=== PATIENT | female | born 1960 | race Caucasian/White ===

== ENCOUNTER → 2016-10-29 | Outpatient (CLI) | payer BC ==
[2016-10-29 11:16] LABS: ALT 47 U/L (9-52); AST 28 U/L (14-36); Alkaline Phosphatase 130 U/L (38-126); Anion Gap 12 mmol/L; Blood Urea Nitrogen 16 mg/dL (7-17); Calcium 9.7 mg/dL (8.4-10.2); Carbon Dioxide 26 mmol/L (22-30); Chloride 102 mmol/L (98-107); Cholesterol 194 mg/dL (<200); Glucose 164 mg/dL (74-99); HDL Cholesterol 42 mg/dL (40-60); Non-African American GFR(MDRD) >60 (>60 ml/min/1.73 sqM); Potassium 4.4 mmol/L (3.5-5.1); Sodium 140 mmol/L (137-145); Total Bilirubin 1.2 mg/dL (0.2-1.3); Total Protein 7.4 g/dL (6.3-8.2); Triglycerides 426 mg/dL (<150)
== END ==
LOC: LABWHC1 09:31
PROVIDERS: ATTEND Internal Medicine Endocrinology, Diabetes & Metabolism
DX: E11.65 Type 2 diabetes mellitus with hyperglycemia (principal); E03.8 Other specified hypothyroidism
CPT/HCPCS: 36415; 80053; 80061; 84443

== ENCOUNTER 2017-11-03 07:22 | Day surgery (SDC) | payer BC ==
[2017-10-29 14:50] VITALS: BMI 49.4
[~2017-11-03 07:22] MED LIST: LACTATED RINGERS 1,000 ML IV SCH; LIDOCAINE 1% 20 ML VIAL (10MG/ML) FOR IV START INTRADERMA PRN
[2017-11-03 08:16] VITALS: RESP 16; TEMP 97.2
[2017-11-03 08:28] LABS: Glucose,Whole Blood 236 mg/dL (75-99)
[2017-11-03 08:36] LABS: Anion Gap 15 mmol/L; Blood Urea Nitrogen 11 mg/dL (7-17); Calcium 9.4 mg/dL (8.4-10.2); Carbon Dioxide 25 mmol/L (22-30); Chloride 98 mmol/L (98-107); Glucose 243 mg/dL (74-99); Sodium 138 mmol/L (137-145)
[2017-11-03] MEDS ORDERED: PROPOFOL 10 MG/ML 20 ML VIAL IV ONE (08:54)
[2017-11-03] MEDS ORDERED: LIDOCAINE 1% INJ 10MG/ML (20 ML MDV) ONE (08:54)
--- NOTE | 2017-11-03 09:14 | P.PCN ---
Date of Procedure: 11/03/17 Procedure(s) Performed: BRIEF HISTORY: Patient is a 57-year-old pleasant white female, scheduled for an elective colonoscopy as a part of screening for colorectal neoplasia. She has family history of colon cancer diagnosed in her sister at age 49. PROCEDURE PERFORMED: Colonoscopy with snare polypectomy. PREOPERATIVE DIAGNOSIS: Screening for colon cancer/family history of colon cancer. IV sedation per Anesthesia. PROCEDURE: After informed consent was obtained, the patient, was brought into the endoscopy unit. IV sedation was administered by Anesthesia under continuous monitoring. Digital rectal examination was normal. Initially the Olympus CF- 160 flexible video colonoscope was then inserted in the rectum, gradually advanced into the cecum without any difficulty. Careful examination was performed as the scope was gradually being withdrawn. Ileocecal valve and the appendiceal orifice were visualized and appeared normal. Prep was excellent. Mucosa of the cecum, ascending colon, transverse colon, appeared normal. In the descending colon there was a 5 mm and 7 mm polyp was of which were removed by snare polypectomy. Rest of the descending colon, sigmoid colon, and rectum appeared normal. In the rectum there was a 5 mm 2 polyps removed by snare polypectomy. Retroflexion was performed in the rectum and no lesions were seen. The patient tolerated the procedure well. IMPRESSION: 5 mm and 7 mm descending colon polyp status post polypectomy 5 mm 2 rectal polyps status post polypectomy RECOMMENDATIONS: Findings of this examination were discussed with the patient as well as a family. She was advised to follow with the biopsy results. If the biopsy of colon polyp shows a tumor adenoma, she can have a repeat colonoscopy in 3-5 years.
[2017-11-03 09:58] VITALS: BP 149/56; PULSE 46
== END 2017-11-03 09:46 | disposition home or self-care (01) ==
LOC: ORWHC2ENDO 07:22
PROVIDERS: ATTEND Internal Medicine Gastroenterology
DX: Z12.11 Encounter for screening for malignant neoplasm of colon (principal); D12.4 Benign neoplasm of descending colon; D12.8 Benign neoplasm of rectum; Z80.0 Family history of malignant neoplasm of digestive organs; I25.10 Atherosclerotic heart disease of native coronary artery without angina pectoris; I49.9 Cardiac arrhythmia, unspecified; E78.5 Hyperlipidemia, unspecified; E11.9 Type 2 diabetes mellitus without complications; E07.9 Disorder of thyroid, unspecified; F39 Unspecified mood [affective] disorder; Z95.5 Presence of coronary angioplasty implant and graft; Z79.84 Long term (current) use of oral hypoglycemic drugs; Z79.890 Hormone replacement therapy; Z79.82 Long term (current) use of aspirin; Z79.899 Other long term (current) drug therapy; Z88.1 Allergy status to other antibiotic agents; Z91.048 Other nonmedicinal substance allergy status
CPT/HCPCS: 93005; 88305; 80048; 45385; J2001; J2704

== ENCOUNTER → 2018-04-01 | Outpatient (CLI) | payer BC ==
[2018-04-01 10:11] LABS: ALT 65 U/L (9-52); AST 32 U/L (14-36); Albumin 3.9 g/dL (3.5-5.0); Alkaline Phosphatase 150 U/L (38-126); Anion Gap 9 mmol/L; Blood Urea Nitrogen 15 mg/dL (7-17); Calcium 9.2 mg/dL (8.4-10.2); Carbon Dioxide 27 mmol/L (22-30); Chloride 99 mmol/L (98-107); Cholesterol 239 mg/dL (<200); Glucose 308 mg/dL (74-99); HDL Cholesterol 37 mg/dL (40-60); Potassium 4.3 mmol/L (3.5-5.1); Sodium 135 mmol/L (137-145); Total Bilirubin 1.3 mg/dL (0.2-1.3); Total Protein 6.8 g/dL (6.3-8.2)
[2018-04-01 10:20] LABS: Triglycerides 605 mg/dL (<150)
[2018-04-01 19:42] LABS: Hemoglobin A1C 11.3 % (4.0-6.0)
== END | disposition home or self-care (01) ==
LOC: LABWHC1 09:07
PROVIDERS: ATTEND Internal Medicine Clinical Cardiac Electrophysiology
DX: E11.9 Type 2 diabetes mellitus without complications (principal); I25.10 Atherosclerotic heart disease of native coronary artery without angina pectoris; I49.3 Ventricular premature depolarization
CPT/HCPCS: 36415; 80053; 80061; 83036; 84443

== ENCOUNTER → 2020-01-29 | Outpatient (CLI) | payer BC ==
[2020-01-29 11:30] LABS: Basophils % (A) 1 %; Eosinophils # (A) 0.6 k/uL (0-0.7); Eosinophils % (A) 7 %; HCT 39.7 % (34.0-46.0); Lymphocytes # (A) 1.7 k/uL (1.0-4.8); Lymphocytes % (A) 21 %; MCH 31.7 pg (25.0-35.0); MCHC 35.3 g/dL (31.0-37.0); Mean Platelet Volume 7.7; Monocytes # (A) 0.3 k/uL (0-1.0); Monocytes % (A) 4 %; Neutrophils # (A) 5.4 k/uL (1.3-7.7); Neutrophils % (A) 66 %; Platelet Count 214 k/uL (150-450); RBC 4.41 m/uL (3.80-5.40); WBC 8.2 k/uL (3.8-10.6)
[2020-01-29 18:12] LABS: African American GFR (CKD) 109.9 (60.0-200.0); Albumin 3.9 g/dL (3.80-4.90); Albumin/Globulin Ratio 1.86 (1.60-3.17); Anion Gap 7.6 mmol/L (4.00-12.00); BUN/Creat Ratio 18.57 Ratio (12.00-20.00); Calcium 9.1 mg/dL (8.7-10.3); Carbon Dioxide 27.4 mmol/L (21.6-31.8); Chol/HDL Ratio 4.46; Globulin 2.1 g/dL (1.6-3.3); LDL Cholesterol,Calculated 76.6 mg/dL (0.0-131.0); Non-African American GFR(CKD) 94.8 (60.0-200.0); Potassium 4.3 mmol/L (3.5-5.5); VLDL Calculation 51.4 mg/dL (5.00-40.00)
[2020-01-29 18:20] LABS: T4, Free (Free Thyroxine) 1.1 ng/dL (0.80-1.80)
[2020-01-29 18:25] LABS: Hemoglobin A1C 11.3 % (4.0-6.0)
[2020-01-29 22:56] LABS: Urine Creatinine 125.2 mg/dL
== END | disposition home or self-care (01) ==
LOC: LABWHC1 10:17
PROVIDERS: ATTEND Internal Medicine
DX: I10 Essential (primary) hypertension (principal); E78.2 Mixed hyperlipidemia; E11.9 Type 2 diabetes mellitus without complications; E03.9 Hypothyroidism, unspecified
CPT/HCPCS: 36415; 80053; 80061; 82043; 82570; 83036; 84439; 84443; 85025

== ENCOUNTER 2020-10-30 16:09 | Inpatient (IN) | payer BC ==
[2020-10-30] MEDS ORDERED: ASPIRIN 81 MG PO STA (16:38)
[2020-10-30] MEDS ORDERED: NITROGLYCERIN SL TABS 0.4 MG TAB SUBLINGUAL STA (16:39)
--- NOTE | 2020-10-30 16:48 | ED ---
Chest Pain HPI - General Chief Complaint: Chest Pain Stated Complaint: Chest pain Time Seen by Provider: 10/30/20 16:19 Source: patient Mode of arrival: wheelchair Limitations: no limitations - History of Present Illness Initial Comments: 6-year-old female history of cardiac disease with 2 stents and ablation who presents with complaints of approximately 2 days of intermittent episodes of retrosternal chest pain it would he had a cough but today seems to not want to go away she states it was approximately 6/10 in severity when she arrived here now is about 7/10 his bandlike feels like someone sitting on her chest. She has some shortness of breath with it. She has some outdated nitroglycerin at home he did not take any also did not take aspirin today. No other current complaints or modifying factors no fevers chills sweats cough or other symptoms. MD Complaint: chest pain - Related Data Home Medications Medication Instructions Recorded Confirmed Aspirin 81 mg PO HS 07/20/14 10/30/20 Furosemide [Lasix] 20 mg PO MOWEFR 07/20/14 10/30/20 Sertraline HCl 100 mg PO DAILY 07/20/14 10/30/20 metFORMIN HCL [Glucophage] 500 mg PO DAILY 07/20/14 10/30/20 Atorvastatin [Lipitor] 40 mg PO HS 10/30/20 10/30/20 Benefiber Gummies 2 tab PO BID PRN 10/30/20 10/30/20 Empagliflozin [Jardiance] 25 mg PO DAILY 10/30/20 10/30/20 Levothyroxine Sodium [Synthroid] 50 mcg PO DAILY 10/30/20 10/30/20 Metoprolol Succinate [Toprol XL] 25 mg PO DAILY 10/30/20 10/30/20 Psyllium Husk (with Sugar) 1 tsp PO DAILY PRN 10/30/20 10/30/20 [Metamucil Powder] metFORMIN HCL [Glucophage] 2,000 mg PO HS 10/30/20 10/30/20 sitaGLIPtin PHOSPHATE [Januvia] 100 mg PO DAILY 10/30/20 10/30/20 Allergies Allergy/AdvReac Type Severity Reaction Status Date / Time adhesive Allergy Rash/Hives Verified 10/30/20 17:49 eggplant Allergy Rash/Hives Verified 10/30/20 17:49 moxifloxacin HCl Allergy MEMORY LOSS Verified 10/30/20 17:49 [From Avelox] Review of Systems ROS Statement: Those systems with pertinent positive or pertinent negative responses have been documented in the HPI. ROS Other: All systems not noted in ROS Statement are negative. EKG Findings - EKG Results: EKG: interpreted by SHANE, sinus rhythm (Sinus bradycardia rate 55. Interval was 78 QRS duration 80 QT since QTC 426/[address]-T wave changes) Past Medical History Past Medical History: Diabetes Mellitus, Hyperlipidemia, Thyroid Disorder Additional Past Medical History / Comment(s): regular irregular HR History of Any Multi-Drug Resistant Organisms: None Reported Past Surgical History: Cardiac Ablation, Heart Catheterization With Stent, Orthopedic Surgery, Tonsillectomy Additional Past Surgical History / Comment(s): heart stents x2,d&c,lenny carpel tunnel Past Anesthesia/Blood Transfusion Reactions: No Reported Reaction Date of Last Stent Placement:: 2013? Past Psychological History: Depression Smoking Status: Never smoker Past Alcohol Use History: None Reported Past Drug Use History: None Reported - Past Family History Sister(s) Family Medical History: Cancer Additional Family Medical History / Comment(s): colon,breast Father Additional Family Medical History / Comment(s): heart problems Mother Family Medical History: Deep Vein Thrombosis (DVT) General Exam - General Exam Comments Initial Comments: This is a well-developed well-nourished awake alert oriented 3 female Limitations: no limitations General appearance: alert Head exam: Present: atraumatic, normocephalic, normal inspection Eye exam: Present: normal appearance, PERRL, EOMI. Absent: scleral icterus, conjunctival injection, periorbital swelling ENT exam: Present: normal exam, mucous membranes moist Neck exam: Present: normal inspection. Absent: tenderness, meningismus, lymphadenopathy Respiratory exam: Present: normal lung sounds bilaterally. Absent: respiratory distress, wheezes, rales, rhonchi, stridor Cardiovascular Exam: Present: regular rate, normal rhythm, normal heart sounds. Absent: systolic murmur, diastolic murmur, rubs, gallop, clicks GI/Abdominal exam: Present: soft, normal bowel sounds. Absent: distended, tenderness, guarding, rebound, rigid Extremities exam: Present: normal inspection, full ROM, normal capillary refill. Absent: tenderness, pedal edema, joint swelling, calf tenderness Back exam: Present: normal inspection Neurological exam: Present: alert, oriented X3, CN II-XII intact Psychiatric exam: Present: normal affect, normal mood Skin exam: Present: warm, dry, intact, normal color. Absent: rash Course Vital Signs 10/30/20 10/30/20 10/30/20 16:12 17:30 18:00 Temperature 98.3 F Pulse Rate 60 54 L 62 Respiratory 20 15 18 Rate Blood Pressure 167/65 155/68 154/66 O2 Sat by Pulse 100 98 99 Oximetry 10/30/20 18:30 Temperature Pulse Rate 54 L Respiratory 16 Rate Blood Pressure 159/72 O2 Sat by Pulse 99 Oximetry Chest Pain MDM - MDM Imaging reviewed no acute findings. I did discuss findings the patient family patient is feeling improved I did discuss case with Dr. Ruiz. Patient be admitted with cardiology consultation. The presentation is consistent with unstable angina Disposition Clinical Impression: Chest pain, Unstable angina pectoris Disposition: ADMITTED IP TO THIS [facility] Condition: Fair Referrals: Puma Ruiz MD [Primary Care Provider] - 1-2 days
[2020-10-30 16:51] LABS: Basophils # (A) 0.1 k/uL (0-0.2); Basophils % (A) 1 %; Eosinophils # (A) 0.5 k/uL (0-0.7); Eosinophils % (A) 5 %; HCT 41.7 % (34.0-46.0); HGB 14.8 gm/dL (11.4-16.0); Hyperchromasia Slight; Lymphocytes # (A) 1.6 k/uL (1.0-4.8); Lymphocytes % (A) 16 %; MCH 30.7 pg (25.0-35.0); MCHC 35.6 g/dL (31.0-37.0); MCV 86.1 fL (80.0-100.0); Mean Platelet Volume 7.3; Monocytes # (A) 0.5 k/uL (0-1.0); Monocytes % (A) 5 %; Neutrophils # (A) 7.3 k/uL (1.3-7.7); Neutrophils % (A) 73 %; Platelet Count 223 k/uL (150-450); RBC 4.84 m/uL (3.80-5.40); RDW 12.7 % (11.5-15.5)
[2020-10-30 17:00] LABS: ALT 17 U/L (4-34); AST 23 U/L (14-36); African American GFR (CKD) >90 (>60 ml/min/1.73 sqM); Albumin 4.7 g/dL (3.5-5.0); Alkaline Phosphatase 90 U/L (38-126); Anion Gap 9 mmol/L; Blood Urea Nitrogen 20 mg/dL (7-17); Calcium 10.4 mg/dL (8.4-10.2); Carbon Dioxide 27 mmol/L (22-30); Chloride 102 mmol/L (98-107); Creatine Kinase 50 U/L (30-135); Glucose 100 mg/dL (74-99); Magnesium 2.2 mg/dL (1.6-2.3); Non-African American GFR(CKD) >90 (>60 ml/min/1.73 sqM); Potassium 4.1 mmol/L (3.5-5.1); Sodium 138 mmol/L (137-145); Total Bilirubin 0.9 mg/dL (0.2-1.3); Total Protein 7.6 g/dL (6.3-8.2)
[2020-10-30 17:07] LABS: INR 0.9 (<1.2); Partial Thromboplastin Time 23.1 sec (22.0-30.0)
--- NOTE | 2020-10-30 17:15 | XR ---
EXAMINATION TYPE: XR chest 2V DATE OF EXAM: 10/30/2020 COMPARISON: 09/16/2018 HISTORY: Chest pain TECHNIQUE: 2 views FINDINGS: Heart and mediastinum are normal. Lungs are clear. Diaphragm is normal. Bony thorax is inta ct. There are chest leads. IMPRESSION: Normal chest. No change.
--- NOTE | 2020-10-30 18:27 | CT ---
EXAMINATION TYPE: CT angio chest DATE OF EXAM: 10/30/2020 COMPARISON: HISTORY: Chest pain. SOB. elevated d-dimer CT DLP: 525.5 mGycm Automated exposure control for dose reduction was used. CONTRAST: Performed with IV Contrast, patient injected with 80 mL of Isovue 370. Images were obtained from the thoracic inlet to the diaphragm with IV contrast and 3-D post processed images. The lungs are clear of consolidation. There is no pleural effusion. Heart is enlarged. There is no pe ricardial effusion. There are no hilar masses. There is no mediastinal adenopathy. Thoracic aorta is intact. There is no aneurysm or dissection. There is no evidence of filling defect in the pulmonary arteries. There is normal opacification of th e pulmonary arteries. The bony thorax is intact. Sternum is intact. IMPRESSION: No active cardiopulmonary disease. No evidence of pulmonary embolism.
[2020-10-30] MEDS ORDERED: HEPARIN SODIUM,PORCINE 5,000 UNIT/ML 1 ML VIAL IV ONE (18:55)
[2020-10-30] MEDS ORDERED: NITROGLYCERIN SL TABS 0.4 MG TAB SUBLINGUAL PRN (18:55)
[2020-10-30] MEDS ORDERED: PSYLLIUM HUSK 100% 6 GM PACKET PO PRN (18:57)
[2020-10-30] MEDS ORDERED: FIBER SUPPLEMENT PO PRN (18:57)
[2020-10-30] MEDS ORDERED: HEPARIN SOD,PORK IN 0.45% NACL 25,000 UNIT in 0.45% NACL 1 250ML.BAG IV SCH (19:00)
[2020-10-30] MEDS: FUROSEMIDE 20 MG TAB PO SCH (20:13)
[2020-10-30] MEDS: SODIUM CHLORIDE 0.9% 1,000 ML IV SCH (20:13)
[2020-10-30] MEDS: metFORMIN 500 MG TAB PO SCH (22:07)
[2020-10-30] MEDS: ATORVASTATIN 40 MG TAB PO SCH (22:07)
[2020-10-31] MEDS ORDERED: HEPARIN SODIUM,PORCINE 5,000 UNIT/ML 1 ML VIAL IV PRN ×2 (04:53→04:55)
[2020-10-31] MEDS: NITROGLYCERIN OINT 1 INCH/GM PACKET TOPICAL SCH ×4 (05:06→18:24)
[2020-10-31] MEDS: LINAGLIPTIN 5 MG TABLET PO SCH (07:50)
[2020-10-31] MEDS: SERTRALINE 100 MG TAB PO SCH (07:50)
[2020-10-31] MEDS: METOPROLOL SUCCINATE (ER) 25 MG TAB.ER.24H PO SCH (07:50)
[2020-10-31] MEDS: ASPIRIN 325 MG TAB PO SCH (07:50)
[2020-10-31] MEDS: LEVOTHYROXINE 50 MCG TAB PO SCH (07:50)
[2020-10-31] MEDS: metFORMIN 500 MG TAB PO SCH ×2 (07:50→20:27)
[2020-10-31] MEDS: NON FORMULARY DRUG (Empagliflozin [Jardiance] 25 MG Tablet) PO SCH (07:51)
[2020-10-31] MEDS ORDERED: HEPARIN SODIUM 1,000 UN/ML (10ML VL) IV PRN (08:30)
[2020-10-31 09:18] LABS: Glucose,Whole Blood 101 mg/dL (75-99)
[2020-10-31] MEDS ORDERED: CAFFEINE CITRATE 60 MG/3 ML VIAL IV PRN (09:36)
[2020-10-31] MEDS ORDERED: AMINOPHYLLINE 500 MG/20 ML VIAL IV PRN (09:36)
[2020-10-31] MEDS ORDERED: REGADENOSON 0.4 MG/5 ML SYRINGE IV PRN (09:36)
--- NOTE | 2020-10-31 11:15 | P.CRDCN ---
History of Present Illness History of present illness: HISTORY OF PRESENTING ILLNESS This is a pleasant 60 -year-old female past medical history significant for type 2 diabetes, hypertension, coronary artery disease status post PCI to the mid RCA , dyslipidemia. She follows in the office with Dr. Tam, last seen in the office in 2018. We have been asked to see in consultation for chest pain. Patient states she started to have retrosternal chest pain started Wednesday and progressively got worse. Pain started on right side back radiating to her anterior chest. She states it was bandl-like in nature, describes it as a 7/10 pressure as if someone is sitting on her chest. Some shortness of breath. States her coworkers said she looked clammy yesterday and her chest pressure persisted, and she decided to present to the emergency department. She states she did take some outdated nitroglycerin at home and it did help relieve the pain. She denies palpitations, shortness of breath, lower extremity edema, weakness, lightheadedness, syncope. She currently does not have chest pain. She does have shortness of breath when lying flat but states this has been going on for years since she gave to her daughter. She denies tobacco, alcohol or illicit drug use. Both EKGs reveal sinus bradycardia HR 55 T wave flattening in leads III and aVF, similar to prior EKGs. Laboratory data reviewed, troponins negative 3, BNP 41, d-dimer 0.85, sodium 138, potassium 4.1, serum creatinine 0.69, WBC 10, hemoglobin 14.8, platelets 223, covid-19 negative. Chest x-ray was no acute cardiopulmonary process. CT chest negative for pulmonary embolism, no active Cardiopulmonary disease. Vital signs blood pressure 116/62, heart rate 49, afebrile, maintaining oxygen saturation on room air. Current home cardiac medications include Lasix 20 mg Wednesday, atorvastatin 40 mg nightly, aspirin 81 mg nightly. She states that she is not sure that she takes Toprol 25mg daily or Losartan. Most recent echocardiogram 04/2018: Left ventricle is mildly dilated with normal systolic function ejection fraction is 55%. Mild concentric hypertrophy 2. LA is moderately dilated. Mild MR Lexiscan stress test 04/2018: fixed perfusion defect in fredo anterolateral segment suggestive of soft-tissue artifact. EKG portion of the stress test dose not show any evidence of ischemia Holter Report 04/2018: Sinus mechanism with heart rate ranging from 46-107 bpm with average of 64 bpm. Normal IA interval. Frequent PVCs, frequent ventricular couplets. One ventricular triplet. Most PVCs are similar morphology. REVIEW OF SYSTEMS At the time of my exam: CONSTITUTIONAL: Denies fever or chills. CARDIOVASCULAR: +chest pain,+ shortness of breath, Denies orthopnea, PND or palpitations. RESPIRATORY: Denies cough. GASTROINTESTINAL: Denies abdominal pain, diarrhea, constipation, nausea or vomiting. MUSCULOSKELETAL: Denies myalgias. NEUROLOGIC: Denies numbness, tingling, headacbe or weakness. ENDOCRINE: Denies fatigue, weight change, polydipsia or polyurina. GENITOURINARY: Denies burning, hematuria or urgency with micturation. HEMATOLOGIC: Denies history of anemia or bleeding. PHYSICAL EXAMINATION CONSTITUTIONAL: No apparent distress. HEENT: Head is normocephalic. Pupils are equal, round. Sclerae anicteric. Mucous membranes of the mouth are moist. No JVD. No carotid bruit. CHEST EXAMINATION: Lungs are clear to auscultation. No chest wall tenderness is noted on palpation or with deep breathing. HEART EXAMINATION: Regular rate and rhythm. S1, S2 heard. Systolic ejection murmur noted at right sternal border, No gallops or rub. ABDOMEN: Soft, nontender. Positive bowel sounds. EXTREMITIES: 2+ peripheral pulses, no lower extremity edema and no calf tenderness. SKIN: intact NEUROLOGIC EXAMINATION: Patient is awake, alert and oriented x3. ASSESSMENT Chest pain, atypical acute coronary event has been ruled out. Coronary artery disease s/p PCI mid RCA (bare metal stenting) in 01/2012. and Cardiac cath 07/2012 revealed severe in stent restenosis of RCA, FARIHA to mid RCA by Dr. Otero Type 2 Diabetes Hypertension Dyslipidemia PLAN An acute coronary event has been ruled out with no EKG evidence of ischemia and negative cardiac enzymes. Obtain 2D echocardiogram and doppler study to assess cardiac structure and function. Perform Lexiscan stress test to assess for stress induced cardiac ischemia. If abnormal will consider coronary angiography. If echocardiogram and stress test with no acute findings, patient can be discharged from cardiology perspective Follow up with Dr. Tam in the outpatient office at scheduled appointment- patient states she has an appointment on 11/07/20 Thank you kindly for this consultation. Nurse Practitioner note has been reviewed, I agree with a documented findings and plan of care. Patient was seen and examined. Past Medical History Past Medical History: Diabetes Mellitus, Hyperlipidemia, Thyroid Disorder Additional Past Medical History / Comment(s): regular irregular HR History of Any Multi-Drug Resistant Organisms: None Reported Past Surgical History: Cardiac Ablation, Heart Catheterization With Stent, Orthopedic Surgery, Tonsillectomy Additional Past Surgical History / Comment(s): heart stents x2,d&c,lenny carpel tunnel Past Anesthesia/Blood Transfusion Reactions: No Reported Reaction Date of Last Stent Placement:: 2013? Past Psychological History: Depression Smoking Status: Never smoker Past Alcohol Use History: None Reported Past Drug Use History: None Reported - Past Family History Sister(s) Family Medical History: Cancer Additional Family Medical History / Comment(s): colon,breast Father Additional Family Medical History / Comment(s): heart problems Mother Family Medical History: Deep Vein Thrombosis (DVT) Medications and Allergies Home Medications Medication Instructions Recorded Confirmed Type Aspirin 81 mg PO HS 07/20/14 10/30/20 History Furosemide [Lasix] 20 mg PO MOWEFR 07/20/14 10/30/20 History Sertraline HCl 100 mg PO DAILY 07/20/14 10/30/20 History metFORMIN HCL [Glucophage] 500 mg PO DAILY 07/20/14 10/30/20 History Atorvastatin [Lipitor] 40 mg PO HS 10/30/20 10/30/20 History Benefiber Gummies 2 tab PO BID PRN 10/30/20 10/30/20 History Empagliflozin [Jardiance] 25 mg PO DAILY 10/30/20 10/30/20 History Levothyroxine Sodium [Synthroid] 50 mcg PO DAILY 10/30/20 10/30/20 History Metoprolol Succinate [Toprol XL] 25 mg PO DAILY 10/30/20 10/30/20 History Psyllium Husk (with Sugar) 1 tsp PO DAILY PRN 10/30/20 10/30/20 History [Metamucil Powder] metFORMIN HCL [Glucophage] 2,000 mg PO HS 10/30/20 10/30/20 History sitaGLIPtin PHOSPHATE [Januvia] 100 mg PO DAILY 10/30/20 10/30/20 History Allergies Allergy/AdvReac Type Severity Reaction Status Date / Time adhesive Allergy Rash/Hives Verified 10/30/20 17:49 eggplant Allergy Rash/Hives Verified 10/30/20 17:49 moxifloxacin HCl Allergy MEMORY LOSS Verified 10/30/20 17:49 [From Avelox] Physical Exam Vitals: Vital Signs Temp Pulse Resp BP Pulse Ox 10/31/20 06:00 97.7 F 51 L 17 130/84 97 10/31/20 02:00 50 L 21 145/87 10/31/20 00:00 20 10/30/20 22:00 55 L 18 10/30/20 20:00 20 136/62 98 10/30/20 18:47 53 L 19 159/72 90 L 10/30/20 18:30 54 L 16 159/72 99 10/30/20 18:00 62 18 154/66 99 10/30/20 17:30 54 L 15 155/68 98 10/30/20 16:12 98.3 F 60 20 167/65 100 Intake and Output 10/30/20 10/31/20 10/31/20 22:59 06:59 14:59 Intake Total 87.877 Balance 87.877 Intake: Intake, IV Titration 87.877 Amount Heparin Sod,Pork in 0.45% 87.877 NaCl 25,000 unit In 0.45 % NaCl 1 250ml.bag @ 8.05 UNITS/KG/HR 10.005 mls/ hr IV .Q24H [facility] Rx#: [id number] Other: Weight 124.284 kg Results 10/30/20 16:43 10/30/20 16:43 Cardiac Enzymes 10/30/20 10/30/20 10/30/20 Range/Units 16:43 16:43 20:06 AST 23 (14-36) U/L Troponin I <0.012 <0.012 (0.000-0.034) ng/mL 10/30/20 Range/Units 23:15 AST (14-36) U/L Troponin I <0.012 (0.000-0.034) ng/mL Coagulation 10/30/20 10/31/20 Range/Units 16:43 03:25 PT 10.0 (9.0-12.0) sec APTT 23.1 34.7 H (22.0-30.0) sec CBC 10/30/20 Range/Units 16:43 WBC 10.0 (3.8-10.6) k/uL RBC 4.84 (3.80-5.40) m/uL Hgb 14.8 (11.4-16.0) gm/dL Hct 41.7 (34.0-46.0) % Plt Count 223 (150-450) k/uL Comprehensive Metabolic Panel 10/30/20 Range/Units 16:43 Sodium 138 (137-145) mmol/L Potassium 4.1 (3.5-5.1) mmol/L Chloride 102 (98-107) mmol/L Carbon Dioxide 27 (22-30) mmol/L BUN 20 H (7-17) mg/dL Creatinine 0.69 (0.52-1.04) mg/dL Glucose 100 H (74-99) mg/dL Calcium 10.4 H (8.4-10.2) mg/dL AST 23 (14-36) U/L ALT 17 (4-34) U/L Alkaline Phosphatase 90 (38-126) U/L Total Protein 7.6 (6.3-8.2) g/dL Albumin 4.7 (3.5-5.0) g/dL Current Medications Generic Name Dose Route Start Last Admin Trade Name Freq PRN Reason Stop Dose Admin Aspirin 325 mg 10/31/20 09:00 Aspirin 325 Mg Tab PO DAILY [facility] Atorvastatin Calcium 40 mg 10/30/20 21:00 10/30/20 22:07 Atorvastatin 40 Mg Tab PO 40 mg HS JENNIFER Administration Furosemide 20 mg 10/30/20 19:00 10/30/20 20:13 Furosemide 20 Mg Tab PO 20 mg MOWEFR JENNIFER Administration Heparin Sodium (Porcine) 0 unit 10/31/20 04:55 10/31/20 05:05 Heparin Sodium,Porcine 5,000 Unit/Ml 1 Ml Vial IV 4,000 unit PER PROTOCOL PRN Administration Low PTT Protocol Sodium Chloride 1,000 mls @ 20 mls/hr 10/30/20 19:00 10/30/20 20:13 Saline 0.9% IV 20 mls/hr .Q24H JENNIFER Administration Heparin Sodium/Sodium Chloride 250 mls @ 10.005 mls/hr 10/30/20 19:00 10/31/20 04:57 25,000 unit/ Sodium Chloride IV 11.05 units/kg/hr .Q24H JENNIFER 13.733 mls/hr Titration Protocol 8.05 UNITS/KG/HR Levothyroxine Sodium 50 mcg 10/31/20 06:30 Levothyroxine 50 Mcg Tab PO DAILY@0630 [facility] Linagliptin 5 mg 10/31/20 09:00 Linagliptin 5 Mg Tablet PO DAILY [facility] Metformin HCl 2,000 mg 10/30/20 21:00 10/30/20 22:07 Metformin 500 Mg Tab PO 2,000 mg HS [facility] Administration Metformin HCl 500 mg 10/31/20 09:00 Metformin 500 Mg Tab PO DAILY [facility] Metoprolol Succinate 25 mg 10/31/20 09:00 Metoprolol Succinate (Er) 25 Mg Tab.Er.24h PO DAILY [facility] Nitroglycerin 0.4 mg 10/30/20 18:55 Nitroglycerin Sl Tabs 0.4 Mg Tab SUBLINGUAL Q5M PRN Chest Pain Nitroglycerin 1 inch 10/31/20 00:00 10/31/20 05:06 Nitroglycerin Oint 1 Inch/Gm Packet TOPICAL Not Given Q6HR [facility] Non-Formulary Medication 25 mg 10/31/20 09:00 Empagliflozin [Jardiance] PO DAILY [facility] Psyllium Hydrophilic Mucilloid 6 gm 10/30/20 18:57 Psyllium Husk 100% 6 Gm Packet PO DAILY PRN Constipation Sertraline HCl 100 mg 10/31/20 09:00 Sertraline 100 Mg Tab PO DAILY [facility] Intake and Output 10/30/20 10/31/20 10/31/20 22:59 06:59 14:59 Intake Total 87.877 Balance 87.877 Intake: Intake, IV Titration 87.877 Amount Heparin Sod,Pork in 0.45% 87.877 NaCl 25,000 unit In 0.45 % NaCl 1 250ml.bag @ 8.05 UNITS/KG/HR 10.005 mls/ hr IV .Q24H [facility] Rx#: [id number] Other: Weight 124.284 kg 10/30/20 16:43 10/30/20 16:43
--- NOTE | 2020-10-31 11:43 | P.HPIM ---
History of Present Illness H&P Date: 10/31/20 HISTORY OF PRESENT ILLNESS This is a 60-year-old female patient with past medical history of diabetes mellitus type 2, hypertension, hyperlipidemia, hypothyroidism, coronary artery disease with PCI to the mid RCA. Patient has been seen by cardiology in the past but has not had a stress test for the past 2 years. She doesn't have appointment with Dr. Tam on November 07. Patient states that she started having chest pain yesterday while she was at work. She felt like a band was across the lower part of her chest and was sharp in the back area. 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 She denies any radiation up into the neck and upper chest or arms. She does state that she has had some numbness in her left fingers for a month and has been following with chiropractor for this. She denies having any weakness. No pedal edema. No fever or chills, no cough. No nausea, vomiting or diarrhea. No lightheadedness or dizziness. She states her blood sugars have been running in a good range. Patient presented to [facility] emergency center for evaluation. She was afebrile, heart rate in the 50s and 60s, blood pressure 167/65, pulse ox 100% on room air. CBC was normal. Electrolytes normal. BUN 20 creatinine 0.69. Blood sugar 100. Calcium 100.4. Liver function tests normal. Magnesium 2.2. Troponin negative on 3 draws. Coronavirus PCR not detected. D-dimer 0.85. EKG is a sinus bradycardia. No acute ST changes. Chest x-ray was normal. CTA of the chest showed no active cardiopulmonary disease. No pulmonary embolism. The patient has been seen by cardiology and ordered for Lexiscan stress test which revealed stress-induced ischemic changes in the lateral wall. Some mild posterior lateral fixed defect may be present. Patient was then scheduled for heart catheterization tomorrow. Echocardiogram report is pending. REVIEW OF SYSTEMS At the time of evaluation: Constitutional: No fever, no chills, no night sweats. No weight change. No weakness, fatigue or lethargy. No daytime sleepiness. EENT: No headache. No blurred vision or double vision, no loss of vision. No loss of Hearing, no ringing in the ears, no dizziness. No nasal drainage or congestion. No epistaxis. No sore throat. Lungs: No shortness of breath, cough, no sputum production. No wheezing. Cardiovascular: Reports chest pain, no lower extremity edema. No palpitations. No paroxysmal nocturnal dyspnea. No orthopnea. No lightheadedness or dizziness. No syncopal episodes. Abdominal: No abdominal pain. No nausea, vomiting. No diarrhea. No constipation. No bloody or tarry stools.. No loss of appetite. Genitourinary: No dysuria, increased frequency, urgency. No urinary retention. Musculoskeletal: No myalgias. No muscle weakness, no gait dysfunction, no frequent falls. Reports back pain. No neck pain. Integumentary: No wounds, no lesions. No rash or pruritus. No unusual bruising. No change in hair or nails. Neurologic: No aphasia. No facial droop. No change in mentation. No head injury. No headache. No paralysis. No paresthesia. Psychiatric: No depression. No anxiety. No mood swings. Endocrine: No abnormal blood sugars. No weight change. No excessive sweating or thirst. No cold intolerance. SURGICAL HISTORY Heart catheterization with stent to the mid RCA, colonoscopy with snare polypectomy negative for malignancy, tonsillectomy, bilateral carpal tunnel release, cardiac ablation. SOCIAL HISTORY Patient is a lifelong nonsmoker, no alcohol use or abuse. 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 Patient lives at home with her . FAMILY HISTORY Father at age 79 from CVA. He had a history of coronary artery disease with CABG in his late 50s. He has history of pacemaker insertion. No diabetes. Mother at age 85 from pulmonary fibrosis. No diabetes history. Patient does not have any brothers. Patient has 3 sisters and one is at age 49 from colon cancer. One has [place]'s and one has diabetes. Patient has one daughter with no major medical problems. PHYSICAL EXAMINATION Gen: This A 60-year-old female patient. She is resting in bed and appears to be comfortable and in no acute distress. HEENT: Head is atraumatic, normocephalic. Pupils equal, round. Sclerae is anicteric. NECK: Supple. No JVD. No lymphadenopathy. No thyromegaly. LUNGS: Clear to auscultation. No wheezes or rhonchi. No intercostal retractions. HEART: Regular rate and rhythm. No murmur. ABDOMEN: Soft. Bowel sounds are present. No masses. No tenderness. EXTREMITIES: No pedal edema. No calf tenderness. dorsalis pedis +2 bilaterally. NEUROLOGICAL: Patient is awake, alert and oriented x3. Cranial nerves 2 through 12 are grossly intact. ASSESSMENT AND PLAN 1. Chest pain with negative troponins, acute coronary syndrome ruled out. Cardiology consult appreciated. Lexiscan stress test and echocardiogram. 2. Diabetes mellitus type 2. Continue NovoLog scale before meals and at bedtime, metformin at home dose and continue Tradjenta 5 mg daily. 3. History of coronary artery disease with PCI to the mid RCA and follows with Dr Tam. 4. Hypertension. Continue Lasix 20 mg on Wednesday. 5. Hyperlipidemia. Continue atorvastatin 40 mg daily. Continue levothyroxine 50 g daily 6. Hypothyroidism. Patient is observation status. DISCHARGE PLAN Home. Impression and plan of care have been directed as dictated by the signing physician. Polly Lewis nurse practitioner acting as scribe for signing physician. Past Medical History Past Medical History: Diabetes Mellitus, Hyperlipidemia, Thyroid Disorder Additional Past Medical History / Comment(s): regular irregular HR History of Any Multi-Drug Resistant Organisms: None Reported Past Surgical History: Cardiac Ablation, Heart Catheterization With Stent, Orthopedic Surgery, Tonsillectomy Additional Past Surgical History / Comment(s): heart stents x2,d&c,lenny carpel tunnel Past Anesthesia/Blood Transfusion Reactions: No Reported Reaction Date of Last Stent Placement:: 2013? Past Psychological History: Depression Smoking Status: Never smoker Past Alcohol Use History: None Reported Past Drug Use History: None Reported - Past Family History Sister(s) Family Medical History: Cancer Additional Family Medical History / Comment(s): colon,breast Father Additional Family Medical History / Comment(s): heart problems Mother Family Medical History: Deep Vein Thrombosis (DVT) Medications and Allergies Home Medications Medication Instructions Recorded Confirmed Type Aspirin 81 mg PO HS 07/20/14 10/30/20 History Furosemide [Lasix] 20 mg PO MOWEFR 07/20/14 10/30/20 History Sertraline HCl 100 mg PO DAILY 07/20/14 10/30/20 History metFORMIN HCL [Glucophage] 500 mg PO DAILY 07/20/14 10/30/20 History Atorvastatin [Lipitor] 40 mg PO HS 10/30/20 10/30/20 History Benefiber Gummies 2 tab PO BID PRN 10/30/20 10/30/20 History Empagliflozin [Jardiance] 25 mg PO DAILY 10/30/20 10/30/20 History Levothyroxine Sodium [Synthroid] 50 mcg PO DAILY 10/30/20 10/30/20 History Metoprolol Succinate [Toprol XL] 25 mg PO DAILY 10/30/20 10/30/20 History Psyllium Husk (with Sugar) 1 tsp PO DAILY PRN 10/30/20 10/30/20 History [Metamucil Powder] metFORMIN HCL [Glucophage] 2,000 mg PO HS 10/30/20 10/30/20 History sitaGLIPtin PHOSPHATE [Januvia] 100 mg PO DAILY 10/30/20 10/30/20 History Allergies Allergy/AdvReac Type Severity Reaction Status Date / Time adhesive Allergy Rash/Hives Verified 10/30/20 17:49 eggplant Allergy Rash/Hives Verified 10/30/20 17:49 moxifloxacin HCl Allergy MEMORY LOSS Verified 10/30/20 17:49 [From Avelox] Physical Exam Vitals: Vital Signs Temp Pulse Resp BP Pulse Ox 10/31/20 06:00 97.7 F 51 L 17 130/84 97 10/31/20 02:00 50 L 21 145/87 10/31/20 00:00 20 10/30/20 22:00 55 L 18 10/30/20 20:00 20 136/62 98 10/30/20 18:47 53 L 19 159/72 90 L 10/30/20 18:30 54 L 16 159/72 99 10/30/20 18:00 62 18 154/66 99 10/30/20 17:30 54 L 15 155/68 98 10/30/20 16:12 98.3 F 60 20 167/65 100 Intake and Output 10/30/20 10/31/20 10/31/20 22:59 06:59 14:59 Intake Total 87.877 Balance 87.877 Intake: Intake, IV Titration 87.877 Amount Heparin Sod,Pork in 0.45% 87.877 NaCl 25,000 unit In 0.45 % NaCl 1 250ml.bag @ 8.05 UNITS/KG/HR 10.005 mls/ hr IV .Q24H JENNIFER Rx#: [id number] Other: Weight 124.284 kg Results CBC & Chem 7: 10/30/20 16:43 10/30/20 16:43 Labs: Abnormal Lab Results - Last 24 Hours (Table) 10/30/20 10/30/20 10/31/20 Range/Units 16:43 16:43 03:25 APTT 34.7 H (22.0-30.0) sec D-Dimer 0.85 H (<0.60) mg/L FEU BUN 20 H (7-17) mg/dL Glucose 100 H (74-99) mg/dL Calcium 10.4 H (8.4-10.2) mg/dL
--- NOTE | 2020-10-31 12:44 | NM ---
EXAMINATION TYPE: NM stress lexiscan cardiolite DATE OF EXAM: 10/31/2020 COMPARISON: NONE HISTORY: Chest pain TECHNIQUE: After the intravenous administration of 10.3 mCi Tc 99m Sestamibi - Cardiolite resting SP ECT images acquired 60 minutes post injection. At peak stress 25.9 mCi Tc 99m Sestamibi - Stress images obtained 45 minutes post injection The patient was stressed with 0.4mg Lexiscan. FINDINGS: There is diminished radiotracer accumulation at the cardiac apex on both resting and stress images. There is diminished radiotracer accumulation lateral wall extending from the cardiac base to the card iac apex. This has a more normal appearance on the resting images compatible with stress-induced isch emic change. Some mild fixed defect along the posterior lateral wall may be present on resting and st ress images. There is some mild dyskinesia of the distal anterior wall Ejection fraction is calculated to be 53 %. IMPRESSION: 1. Stress-induced ischemic change lateral wall. 2. Some mild posterior lateral fixed defect may be present. 3. Dyskinesia distal anterior wall A [place] level critical message alert has been initiated for Puma Ruiz MD via the [employer] Critical Results System on 10/31/2020 12:42 PM. This message alert has been sent to Puma Ruiz MD via the preferences provided by the clinician for the receipt of Radiology Critical Findings. Message ID [id number].
[2020-10-31 12:46] LABS: Chol/HDL Ratio 5.93
[2020-10-31] MEDS ORDERED: ALPRAZolam 0.25 MG TAB PO PRN (12:57)
[2020-10-31] MEDS ORDERED: ALPRAZolam 0.5 MG TAB PO PRN (12:57)
[2020-10-31] MEDS: INSULIN ASPART (NovoLOG) 100 UNIT/ML VIAL SQ SCH ×3 (13:50→20:19)
[2020-10-31 17:09] LABS: Glucose,Whole Blood 110 mg/dL (75-99)
[2020-10-31 20:15] LABS: Glucose,Whole Blood 118 mg/dL (75-99)
[2020-10-31] MEDS: ATORVASTATIN 40 MG TAB PO SCH (20:27)
[2020-10-31] MEDS: SODIUM CHLORIDE 0.9% 1,000 ML IV SCH (20:28)
[2020-11-01] MEDS: NITROGLYCERIN OINT 1 INCH/GM PACKET TOPICAL SCH ×4 (00:56→19:02)
[2020-11-01] MEDS ORDERED: SODIUM CHLORIDE 0.9% 1,000 ML in EMPTY BAG 1 BAG IV ONE (05:00)
[2020-11-01] MEDS: SERTRALINE 100 MG TAB PO SCH (05:29)
[2020-11-01] MEDS: LEVOTHYROXINE 50 MCG TAB PO SCH (05:29)
[2020-11-01] MEDS: ASPIRIN 325 MG TAB PO SCH (05:29)
[2020-11-01] MEDS: METOPROLOL SUCCINATE (ER) 25 MG TAB.ER.24H PO SCH (05:29)
[2020-11-01 05:54] LABS: Glucose,Whole Blood 116 mg/dL (75-99)
[2020-11-01] MEDS ORDERED: ATORVASTATIN 80 MG TAB PO ONE (06:00)
[2020-11-01 06:18] LABS: Basophils # (A) 0.1 k/uL (0-0.2); Basophils % (A) 1 %; Eosinophils # (A) 0.5 k/uL (0-0.7); Eosinophils % (A) 6 %; HCT 41.3 % (34.0-46.0); HGB 14.5 gm/dL (11.4-16.0); Lymphocytes # (A) 2.1 k/uL (1.0-4.8); Lymphocytes % (A) 26 %; MCH 30.6 pg (25.0-35.0); MCHC 35.1 g/dL (31.0-37.0); MCV 87.2 fL (80.0-100.0); Mean Platelet Volume 7.6; Monocytes # (A) 0.4 k/uL (0-1.0); Monocytes % (A) 5 %; Neutrophils % (A) 61 %; Platelet Count 241 k/uL (150-450); RBC 4.74 m/uL (3.80-5.40); RDW 12.8 % (11.5-15.5); WBC 8.1 k/uL (3.8-10.6)
[2020-11-01 06:37] LABS: African American GFR (CKD) >90 (>60 ml/min/1.73 sqM); Anion Gap 9 mmol/L; Blood Urea Nitrogen 20 mg/dL (7-17); Calcium 9.6 mg/dL (8.4-10.2); Carbon Dioxide 26 mmol/L (22-30); Chloride 104 mmol/L (98-107); Glucose 120 mg/dL (74-99); Non-African American GFR(CKD) >90 (>60 ml/min/1.73 sqM); Potassium 4.2 mmol/L (3.5-5.1); Sodium 139 mmol/L (137-145)
[2020-11-01] MEDS ORDERED: HEPARIN SODIUM,PORCINE 2,500 UNIT in SODIUM CHLORIDE 0.9% 250 ML IRRIGATION PRN (07:00)
[2020-11-01] MEDS ORDERED: HEPARIN SODIUM,PORCINE 10,000 UNIT in SODIUM CHLORIDE 0.9% 1,000 ML IRRIGATION PRN (07:00)
[2020-11-01 07:05] LABS: Glucose,Whole Blood 120 mg/dL (75-99)
[2020-11-01] MEDS: NON FORMULARY DRUG (Empagliflozin [Jardiance] 25 MG Tablet) PO SCH (07:13)
[2020-11-01] MEDS: INSULIN ASPART (NovoLOG) 100 UNIT/ML VIAL SQ SCH ×4 (07:13→22:08)
[2020-11-01] MEDS: LINAGLIPTIN 5 MG TABLET PO SCH (07:14)
[2020-11-01] MEDS: metFORMIN 500 MG TAB PO SCH (07:14)
[2020-11-01] MEDS ORDERED: IV FLUID CONTINUATION 600 ML IV ONE (08:49)
[2020-11-01] MEDS ORDERED: LIDOCAINE 1% INJ 10MG/ML (20 ML MDV) ONE (08:57)
[2020-11-01] MEDS ORDERED: HEPARIN SODIUM 1,000 UN/ML (10ML VL) ONE (08:57)
[2020-11-01] MEDS ORDERED: VERAPAMIL 2.5 MG/ML 2 ML AMP ONE (08:57)
[2020-11-01] MEDS ORDERED: MIDAZOLAM 2 MG/2 ML VIAL IV ONE (09:16)
[2020-11-01] MEDS ORDERED: LIDOCAINE 1% INJ 10MG/ML (20 ML MDV) SQ ONE (09:17)
[2020-11-01] MEDS ORDERED: VERAPAMIL SYRINGE (5 MG/10 ML) INTRAARTER ONE (09:18)
[2020-11-01] MEDS ORDERED: HEPARIN SODIUM 1,000 UN/ML (10ML VL) IV ONE (09:19)
[2020-11-01] MEDS ORDERED: niCARdipine 25 MG/10 ML VIAL ONE (09:41)
[2020-11-01] MEDS: MIDAZOLAM 2 MG/2 ML VIAL IV ONE ×2 (09:43→09:56)
[2020-11-01] MEDS ORDERED: CLOPIDOGREL 75 MG TAB ONE (10:11)
[2020-11-01] MEDS ORDERED: CLOPIDOGREL 75 MG TAB PO ONE (10:14)
[2020-11-01] MEDS ORDERED: IOPAMIDOL-370 125ML BTL INJ ONE (10:14)
[2020-11-01] MEDS ORDERED: NITROGLYCERIN SL TABS 0.4 MG TAB SUBLINGUAL PRN (10:31)
[2020-11-01] MEDS ORDERED: MAG HYDROX/AL HYDROX/SIMETH 30 ML CUP PO PRN (10:31)
[2020-11-01] MEDS ORDERED: ATROPINE SULFATE 0.1 MG/ML 10ML SYRINGE IV PRN (10:31)
[2020-11-01] MEDS ORDERED: RX INFO: IV CONTRAST WAS GIVEN 1 EACH MISC MISCELLANE PRN (10:31)
[2020-11-01] MEDS ORDERED: ZOLPIDEM 5 MG TAB PO PRN (10:31)
[2020-11-01] MEDS ORDERED: SODIUM CHLORIDE 0.9% 1,000 ML IV SCH (10:45)
--- NOTE | 2020-11-01 10:56 | LTR ---
November 01, 2020 Re: Tanya Flor Dear Dr. Ruiz Ms. Tanya Chantalrahul underwent today successful stenting of the right coronary artery with good angiographic results and without any complication from right radial approach. Thank you for allowing me to participate in her and please do not hesitate to call if you have any question or concern. Sincerely, Paco Otero MD MMADITHYA / ENDYN: [id number] /
--- NOTE | 2020-11-01 11:04 | CC ---
CARDIAC CATHETERIZATION REPORT CARDIAC CATHETERIZATION AND PERCUTANEOUS CORONARY INTERVENTION: DATE OF SERVICE: November 01, 2020 PERFORMING PHYSICIAN: Paco Otero MD. PROCEDURE PERFORMED: 1. Selective right and left coronary angiogram. 2. Left heart catheterization. 3. Successful stenting of the mid right coronary artery using 2.75 x 15 mm Xience drug- eluting stent with excellent angiographic results. 4. Successful balloon angioplasty of the proximal and distal right coronary artery. INDICATION: This is a very pleasant 60-year-old female patient with coronary artery disease and prior stenting of the RCA as well as diabetes and hypertension and dyslipidemia, presented to the hospital with chest discomfort and ruled out for acute coronary event. She underwent myocardial perfusion imaging stress test and that revealed inferior/lateral ischemia. Because of that, a heart catheterization was advised. APPROACH: Right radial artery. COMPLICATION: None. LEVEL OF SEDATION: Moderate with sedation length of 58 minutes. PROCEDURE DESCRIPTION: After obtaining an informed consent, the patient was brought to the cardiac labor economics professor. The right radial artery was cannulated using micropuncture technique, the micropuncture wire passed easily then I placed a 6-Mongolian sheath at the right radial artery. At that point, the patient was given 2 mg of verapamil IA and 10,000 units of heparin IV. Selective right and left coronary angiogram performed using JR4 and JL3.5 catheters. I did left heart catheterization using 6-Mongolian pigtail catheter. After that I did intervene on the right coronary artery. Please see a separate paragraph for that. SELECTIVE CORONARY ANGIOGRAM: 1. The right coronary artery is a large caliber vessel and it is a dominant vessel. The RCA proximally appeared to have mild disease only. The mid RCA is stented with severe in-stent restenosis on multiple areas. The RCA distally appeared to have mild disease only. 2. The left main is angiographically normal. It bifurcates into an LCX and LAD. 3. The LCX is a large caliber vessel. It is a nondominant vessel. The proximal left circumflex appeared to be angiographically normal. The mid left circumflex has mild disease only and gives rise into the first and second obtuse marginal branches and both appeared to have mild to moderate disease only. The left circumflex distally appeared to have a tubular lesion in the range of 50% to 60%. 4. The LAD: The proximal LAD appeared to be angiographically normal. The mid LAD after the bifurcation of a large diagonal branch appeared to have a focal lesion in the range of 60%. The LAD distally appeared to be angiographically normal. HEMODYNAMICS: The LVEDP was about 10 to 12 mmHg without significant gradient across the aortic valve. PCI OF THE RCA: Anticoagulation was completed with the heparin was given at the beginning of the procedure from right radial approach. Continuous ACT monitoring was performed at the beginning and also throughout the procedure. I did engage the RCA using JR4 guide. Subsequently I did wire the RCA using a run- through wire and the wire was positioned in the distal right coronary artery. After that I attempted advancing a 2.5 x 12 mm AngioSculpt balloon but the balloon will not cross from the guide to the right coronary artery. At that point, I did 2.5 x 20 mm regular balloon. I did PTCA ballooning of the proximal to mid then mid and mid to distal right coronary artery. After that I did use Guidezilla and with adjunctive use of Guidezilla I was able to advance the AngioSculpt all the way to the distal right coronary artery where I did multiple PTCA ballooning there of the whole segment. After that I did an angiogram which showed great angiographic results in the proximal and distal parts of the stent in the right coronary artery, but in the mid area appeared to have a dissection which I decided to cover with a stent. I deployed 2.75 x 15 Xience drug-eluting stent where the stent was positioned under fluoroscopy guidance and deployed under its nominal pressure. The following angiogram showed great angiographic result and the procedure was completed without any complication. CONCLUSION: 1. Critical in-stent restenosis involving the mid right coronary artery. I did perform successful angioplasty and stenting of the right coronary artery with an excellent angiographic result. 2. Intermediate lesion involving the distal left circumflex coronary artery. 3. Intermediate lesion involving the mid left anterior descending artery. 4. Normal left main coronary artery. 5. Normal LVEDP. POSTPROCEDURE MANAGEMENT: 1. Aggressive cholesterol control. 2. Risk factor modifications. 3. Follow up with the patient. MMODL / IJN: [id number] /
[2020-11-01 11:38] VITALS: RESP 16
[2020-11-01 11:38] LABS: Glucose,Whole Blood 104 mg/dL (75-99)
--- NOTE | 2020-11-01 12:25 | P.PN ---
Subjective Progress Note Date: 11/01/20 HISTORY OF PRESENT ILLNESS This is a 60-year-old female patient with past medical history of diabetes mellitus type 2, hypertension, hyperlipidemia, hypothyroidism, coronary artery disease with PCI to the mid RCA. Patient has been seen by cardiology in the past but has not had a stress test for the past 2 years. She doesn't have appointment with Dr. Tam on November 07. Patient states that she started having chest pain yesterday while she was at work. She felt like a band was across the lower part of her chest and was sharp in the back area. 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 She denies any radiation up into the neck and upper chest or arms. She does state that she has had some numbness in her left fingers for a month and has been following with chiropractor for this. She denies having any weakness. No pedal edema. No fever or chills, no cough. No nausea, vomiting or diarrhea. No lightheadedness or dizziness. She states her blood sugars have been running in a good range. Patient presented to [facility] emergency center for evaluation. She was afebrile, heart rate in the 50s and 60s, blood pressure 167/65, pulse ox 100% on room air. CBC was normal. Electrolytes normal. BUN 20 creatinine 0.69. Blood sugar 100. Calcium 100.4. Liver function tests normal. Magnesium 2.2. Troponin negative on 3 draws. Coronavirus PCR not detected. D-dimer 0.85. EKG is a sinus bradycardia. No acute ST changes. Chest x-ray was normal. CTA of the chest showed no active cardiopulmonary disease. No pulmonary embolism. The patient has been seen by cardiology and ordered for Lexiscan stress test which revealed stress-induced ischemic changes in the lateral wall. Some mild posterior lateral fixed defect may be present. Patient was then scheduled for heart catheterization tomorrow. Echocardiogram report is pending. 11/01: Patient is scheduled for heart catheterization today. She's been afebrile, heart rate 50s, blood pressure 130/62, pulse ox 99% on room air. monitoring analyst is sinus bradycardia. Blood sugars have been running between 110 and 120. BUN is 20 creatinine 0.71. CBC is normal. Patient underwent heart catheterization with Dr. Otero and found to have a critical in-stent restenosis in the mid RCA. Stenting was done and balloon angioplasty. Patient complains of indigestion. No chest pain. Right wrist without signs of hematoma or bleeding. REVIEW OF SYSTEMS At the time of evaluation: Constitutional: No fever, no chills, no night sweats. No weight change. No weakness, fatigue or lethargy. No daytime sleepiness. EENT: No headache. No blurred vision or double vision, no loss of vision. No loss of Hearing, no ringing in the ears, no dizziness. No nasal drainage or congestion. No epistaxis. No sore throat. Lungs: No shortness of breath, cough, no sputum production. No wheezing. Cardiovascular: Reports chest pain, no lower extremity edema. No palpitations. No paroxysmal nocturnal dyspnea. No orthopnea. No lightheadedness or dizziness. No syncopal episodes. Abdominal: No abdominal pain. Reports indigestion No nausea, vomiting. No diarrhea. No constipation. No bloody or tarry stools.. No loss of appetite. Genitourinary: No dysuria, increased frequency, urgency. No urinary retention. Musculoskeletal: No myalgias. No muscle weakness, no gait dysfunction, no f requent falls. Reports back pain. No neck pain. Integumentary: No wounds, no lesions. No rash or pruritus. No unusual bruising. No change in hair or nails. Neurologic: No aphasia. No facial droop. No change in mentation. No head injury. No headache. No paralysis. No paresthesia. Psychiatric: No depression. No anxiety. No mood swings. Endocrine: No abnormal blood sugars. No weight change. No excessive sweating or thirst. No cold intolerance. PHYSICAL EXAMINATION Gen: This A 60-year-old female patient. She is resting in bed and appears to be comfortable and in no acute distress. is at bedside. HEENT: Head is atraumatic, normocephalic. Pupils equal, round. Sclerae is anicteric. NECK: Supple. No JVD. No lymphadenopathy. No thyromegaly. LUNGS: Clear to auscultation. No wheezes or rhonchi. No intercostal retractions. HEART: Regular rate and rhythm. No murmur. ABDOMEN: Soft. Bowel sounds are present. No masses. No tenderness. EXTREMITIES: No pedal edema. No calf tenderness. dorsalis pedis +2 bilaterally. NEUROLOGICAL: Patient is awake, alert and oriented x3. Cranial nerves 2 through 12 are grossly intact. ASSESSMENT AND PLAN 1. Chest pain with negative troponins, acute coronary syndrome ruled out. Cardiology consult appreciated. Status post stent of the RCA and balloon angioplasty. Continue aspirin and changed to 81 mg daily, atorvastatin 40 mg daily, Plavix 75 mg daily, Toprol-XL 25 mg daily, nitroglycerin sublingual as needed. 2. Diabetes mellitus type 2. Continue NovoLog scale before meals and at bedtime, and continue Tradjenta 5 mg daily. Hold metformin. 3. History of coronary artery disease with previous PCI to the mid RCA and follows with Dr Tam. 4. Hypertension. Continue Lasix 20 mg on Wednesday. 5. Hyperlipidemia. Continue atorvastatin 40 mg daily. Continue levothyroxine 50 g daily 6. Hypothyroidism. Continue levothyroxine 50 g daily. DISCHARGE PLAN Home on Wednesday. Impression and plan of care have been directed as dictated by the signing physician. Polly Lewis nurse practitioner acting as scribe for signing physician. Objective - Vital Signs Vital signs: Vital Signs Temp 97.8 F 11/01/20 02:03 Pulse 50 L 11/01/20 02:03 Resp 18 11/01/20 02:03 BP 130/62 11/01/20 02:03 Pulse Ox 99 11/01/20 02:03 Intake & Output 10/31/20 11/01/20 11/01/20 18:59 06:59 18:59 Intake Total 350 Balance 350 Weight 124.284 kg Intake: Oral 350 Other: Voiding Method Toilet Toilet # Voids 1 - Labs CBC & Chem 7: 11/01/20 05:28 11/01/20 05:28 Labs: Abnormal Lab Results - Last 24 Hours (Table) 10/31/20 10/31/20 10/31/20 Range/Units 03:25 09:16 17:07 BUN (7-17) mg/dL Glucose (74-99) mg/dL POC Glucose (mg/dL) 101 H 110 H (75-99) mg/dL Triglycerides 225.0 H (0.0-149.0) mg/dL VLDL Cholesterol, Calc 45.00 H (5.00-40.00) mg/dL HDL Cholesterol 27.0 L (40.0-60.0) mg/dL 10/31/20 11/01/20 11/01/20 Range/Units 20:14 05:28 05:53 BUN 20 H (7-17) mg/dL Glucose 120 H (74-99) mg/dL POC Glucose (mg/dL) 118 H 116 H (75-99) mg/dL Triglycerides (0.0-149.0) mg/dL VLDL Cholesterol, Calc (5.00-40.00) mg/dL HDL Cholesterol (40.0-60.0) mg/dL 11/01/20 Range/Units 07:04 BUN (7-17) mg/dL Glucose (74-99) mg/dL POC Glucose (mg/dL) 120 H (75-99) mg/dL Triglycerides (0.0-149.0) mg/dL VLDL Cholesterol, Calc (5.00-40.00) mg/dL HDL Cholesterol (40.0-60.0) mg/dL
[2020-11-01 15:53] VITALS: BMI 41.6
[2020-11-01 17:16] LABS: Glucose,Whole Blood 107 mg/dL (75-99)
[2020-11-01] MEDS: FUROSEMIDE 20 MG TAB PO SCH (19:45)
[2020-11-01] MEDS: SODIUM CHLORIDE 0.9% 1,000 ML IV SCH (19:46)
[2020-11-01 19:51] LABS: Glucose,Whole Blood 177 mg/dL (75-99)
[2020-11-01] MEDS: ATORVASTATIN 40 MG TAB PO SCH (22:08)
[2020-11-02] MEDS: NITROGLYCERIN OINT 1 INCH/GM PACKET TOPICAL SCH ×2 (00:04→06:05)
[2020-11-02] MEDS: LEVOTHYROXINE 50 MCG TAB PO SCH (06:05)
[2020-11-02 06:48] LABS: African American GFR (CKD) >90 (>60 ml/min/1.73 sqM); Non-African American GFR(CKD) >90 (>60 ml/min/1.73 sqM)
[2020-11-02 06:53] VITALS: BP 115/69; PULSE 53; TEMP 98
[2020-11-02 07:32] LABS: Glucose,Whole Blood 159 mg/dL (75-99)
[2020-11-02] MEDS: INSULIN ASPART (NovoLOG) 100 UNIT/ML VIAL SQ SCH (08:43)
[2020-11-02] MEDS: SERTRALINE 100 MG TAB PO SCH (08:44)
[2020-11-02] MEDS: METOPROLOL SUCCINATE (ER) 25 MG TAB.ER.24H PO SCH (08:44)
[2020-11-02] MEDS: NON FORMULARY DRUG (Empagliflozin [Jardiance] 25 MG Tablet) PO SCH (08:44)
[2020-11-02] MEDS ORDERED: ASPIRIN 81 MG PO SCH (09:00)
[2020-11-02] MEDS: LINAGLIPTIN 5 MG TABLET PO SCH (09:20)
--- NOTE | 2020-11-02 09:48 | P.DS ---
Providers Date of admission: 11/01/20 09:13 Expected date of discharge: 11/02/20 Attending physician: Puma Ruiz Consults: 10/30/20 18:55 Consult Physician Urgent Consulting Provider: Nicolas Gibson Consult Reason/Comments: Chest pain Do you want consulting provider notified?: Yes 11/01/20 10:31 Consult Physician Routine Consulting Provider: [facility] Consult Reason/Comments: Post Interventional patient Do you want consulting provider notified?: Already Contacted [facility] Course: This is a 60-year-old female patient with past medical history of diabetes mellitus type 2, hypertension, hyperlipidemia, hypothyroidism, coronary artery disease with PCI to the mid RCA. Patient has been seen by cardiology in the past but has not had a stress test for the past 2 years. She doesn't have appointment with Dr. Tam on November 07. Patient states that she started having chest pain yesterday while she was at work. She felt like a band was across the lower part of her chest and was sharp in the back area. Patient works as a [employer]. She denies any radiation up into the neck and upper chest or arms. She does state that she has had some numbness in her left fingers for a month and has been following with chiropractor for this. She denies having any weakness. No pedal edema. No fever or chills, no cough. No nausea, vomiting or diarrhea. No lightheadedness or dizziness. She states her blood sugars have been running in a good range. Patient presented to [facility] emergency center for evalua tion. She was afebrile, heart rate in the 50s and 60s, blood pressure 167/65, pulse ox 100% on room air. CBC was normal. Electrolytes normal. BUN 20 creatinine 0.69. Blood sugar 100. Calcium 100.4. Liver function tests normal. Magnesium 2.2. Troponin negative on 3 draws. Coronavirus PCR not detected. D-dimer 0.85. EKG is a sinus bradycardia. No acute ST changes. Chest x-ray was normal. CTA of the chest showed no active cardiopulmonary disease. No pulmonary embolism. The patient has been seen by cardiology and ordered for Lexiscan stress test which revealed stress-induced ischemic changes in the lateral wall. Some mild posterior lateral fixed defect may be present. Patient was then scheduled for heart catheterization tomorrow. Echocardiogram report is pending. 11/01: Patient is scheduled for heart catheterization today. She's been afebrile, heart rate 50s, blood pressure 130/62, pulse ox 99% on room air. 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 Blood sugars have been running between 110 and 120. BUN is 20 creatinine 0.71. CBC is normal. Patient underwent heart catheterization with Dr. Otero and found to have a critical in-stent restenosis in the mid RCA. Stenting was done and balloon angioplasty. Patient complains of indigestion. No chest pain. Right wrist without signs of hematoma or bleeding. Discharge diagnoses: 1. Chest pain due to CAD post left heart catheterization and PCI of the RCA. 2. Diabetes mellitus type 2. 3. History of coronary artery disease with previous PCI to the mid RCA . 4. Hypertension. 5. Hyperlipidemia. 6. Hypothyroidism. Patient Condition at Discharge: Good Plan - Discharge Summary Discharge Rx Participant: No New Discharge Prescriptions: New Clopidogrel [Plavix] 75 mg PO DAILY 30 Days #30 tab Continue Furosemide [Lasix] 20 mg PO MOWEFR Aspirin 81 mg PO HS Metoprolol Succinate [Toprol XL] 25 mg PO DAILY Atorvastatin [Lipitor] 40 mg PO HS No Action metFORMIN HCL [Glucophage] 500 mg PO DAILY Sertraline HCl 100 mg PO DAILY Psyllium Husk (with Sugar) [Metamucil Powder] 1 tsp PO DAILY PRN PRN Reason: Constipation sitaGLIPtin PHOSPHATE [Januvia] 100 mg PO DAILY Levothyroxine Sodium [Synthroid] 50 mcg PO DAILY Empagliflozin [Jardiance] 25 mg PO DAILY metFORMIN HCL [Glucophage] 2,000 mg PO HS Benefiber Gummies 2 tab PO BID PRN PRN Reason: Constipation Discharge Medication List Aspirin 81 mg PO HS 07/20/14 [History] Furosemide [Lasix] 20 mg PO MOWEFR 07/20/14 [History] Sertraline HCl 100 mg PO DAILY 07/20/14 [History] metFORMIN HCL [Glucophage] 500 mg PO DAILY 07/20/14 [History] Atorvastatin [Lipitor] 40 mg PO HS 10/30/20 [History] Benefiber Gummies 2 tab PO BID PRN 10/30/20 [History] Empagliflozin [Jardiance] 25 mg PO DAILY 10/30/20 [History] Levothyroxine Sodium [Synthroid] 50 mcg PO DAILY 10/30/20 [History] Metoprolol Succinate [Toprol XL] 25 mg PO DAILY 10/30/20 [History] Psyllium Husk (with Sugar) [Metamucil Powder] 1 tsp PO DAILY PRN 10/30/20 [History] metFORMIN HCL [Glucophage] 2,000 mg PO HS 10/30/20 [History] sitaGLIPtin PHOSPHATE [Januvia] 100 mg PO DAILY 10/30/20 [History] Clopidogrel [Plavix] 75 mg PO DAILY 30 Days #30 tab 11/01/20 [Rx] Follow up Appointment(s)/Referral(s): Giuliano Tam MD [Family Provider] - 11/07/20 Puma Ruiz MD [Primary Care Provider] - 1-2 days
--- NOTE | 2020-11-02 10:25 | P.PN ---
Subjective Progress Note Date: 11/02/20 Physical pleasant 60-year-old female patient who previously followed with Dr. Tam in the office. Has a history of prior CAD with stenting of the RCA in the past, diabetes, hypertension, hyperlipidemia. She has not followed in the office in several years. She had an appointment soon to reestablish care with Dr. Tam. Presented to the emergency department with complaints of chest discomfort. She underwent MPI which revealed infero-lateral ischemia. She subsequently underwent cardiac catheterization with successful stenting of mid RCA in-stent restenosis and balloon angioplasty of the proximal and distal RCA. She did develop some chest discomfort last night and was initiated on Nitropas te. She's been chest pain-free since that time. She continues to have Nitropaste on. Right radial puncture site with pressure dressing intact. She is currently on aspirin, Plavix, Lipitor, Lasix, metoprolol succinate. Upon examination patient is resting comfortably in bed. She has no current c omplaints of chest discomfort. She's had no shortness of breath, dizziness, palpitations, orthopnea or PND. She has no edema. Objective - Vital Signs Vital signs: Vital Signs Temp 98 F 11/02/20 06:39 Pulse 53 L 11/02/20 06:39 Resp 16 11/02/20 06:39 BP 115/69 11/02/20 06:39 Pulse Ox 96 11/02/20 06:39 Intake & Output 11/01/20 11/02/20 11/02/20 18:59 06:59 18:59 Intake Total 600 240 Balance 600 240 Weight 124.28 kg Intake: IV 200 Oral 400 240 Other: Voiding Method Toilet # Voids 0 - Exam PHYSICAL EXAMINATION: HEENT: Head is atraumatic, normocephalic. Pupils equal, round. Neck is supple. There is no elevated jugular venous pressure. HEART EXAMINATION: Heart sounds regular, S1 and S2 normal. No murmur or gallop heard. CHEST EXAMINATION: Lungs are clear to auscultation and precussion. No chest wall tenderness is noted on palpation or with deep breathing. ABDOMEN: Soft, nontender. Bowel sounds are heard. No organomegaly noted. EXTREMITIES: 2+ peripheral pulses with no evidence of peripheral edema and no calf tenderness noted. Right radial puncture site with pressure dressing dry and intact. NEUROLOGIC patient is awake, alert and oriented x3. . - Labs CBC & Chem 7: 11/01/20 05:28 11/02/20 06:21 Labs: Abnormal Lab Results - Last 24 Hours (Table) 11/01/20 11/01/20 11/01/20 Range/Units 11:37 17:14 19:44 POC Glucose (mg/dL) 104 H 107 H 177 H (75-99) mg/dL 11/02/20 Range/Units 07:31 POC Glucose (mg/dL) 159 H (75-99) mg/dL Assessment and Plan Assessment: #1 CAD status post angioplasty and stenting of in-stent restenosis involving the RCA #2 hypertension #3 diabetes #4 hyperlipidemia #5 hypothyroidism Plan: From cardiology perspective remove nitroglycerin paste. Ambulate the patient. If the patient remains chest pain-free she may be discharged later today. She will follow-up in the office as previously scheduled with Dr. Tam. Continue dual antiplatelet therapy, statin and beta jayy. The above dictated assessment and findings were discussed with signing physician. The impression and plan of care have been directed as dictated. Kelsey Cartagena, Nurse Practitioner, acting as scribe for signing physician.
[2020-11-02] MEDS ORDERED: CLOPIDOGREL 75 MG TAB PO SCH (10:32)
--- NOTE | 2020-11-04 08:19 | EST ---
EXERCISE STRESS AGE: 60 SEX: Female HT: 5'8" WT: 273 lbs. PROTOCOL: Lexiscan Cardiolite STAGE: N/A DURATION OF EXERCISE: 6 minutes HEART RATE REST: 48 BLOOD PRESSURE REST: 128/70 MAXIMUM HEART RATE ACHIEVED: 67 MAXIMUM BLOOD PRESSURE: 140/71 85% MPHR: 136 100% MPHR: 160 METS: N/A INDICATIONS: Chest pain CLINICAL INFORMATION: Baseline EKG revealed normal sinus rhythm with sinus bradycardia, no acute changes, poor R-wave progression noted. With Lexiscan administration, heart rate changed from 48- 67 beats per minute. Blood pressure changed from 128/70 to 140/71, and came back to baseline. EKG remained unremarkable. By EKG criteria, this is unremarkable Lexiscan stress test. The nuclear scan results which are more pertinent will be reported by the radiologist. MARY / NAN: [id number] /
--- NOTE | 2020-11-06 07:04 | CDI ---
Documentation Clarification Form Date: 11/06/2020 07:01:55 AM From: Jane MolinaDowneyANKUSH ponce, CCDS Admit Date: 11/01/2020 09:13:00 AM Patient Name: Tanya Flor Visit Number: [id number] Discharge Date: 11/02/2020 11:33:00 AM ATTENTION: The Clinical Documentation Specialists (CDI) and [facility] Coding Staff appreciate your assistance in clarifying documentation. Please respond to the clarification below the line at the bottom and electronically sign. The CDI & [facility] Coding staff will review the response and follow-up if needed. Please note: Queries are made part of the Legal Health Record. If you have any questions, please contact the author of this message via ITS. Dr. Paco Otero: Dissection is documented 11/01 PTCA report. Additional clarification is requested regarding the relationship, if any, that exists between the diagnosis and the procedure. Per the 11/01 PTCA report: "I did PTCA ballooning of the proximal to mid then mid and mid to distal right coronary artery. After that I did use Guidezilla and with adjunctive use of Guidezilla I was able to advance the AngioSculpt all the way to the distal right coronary artery where I did multiple PTCA ballooning there of the whole segment. After that I did an angiogram which showed great angiographic results in the proximal and distal parts of the stent in the right coronary artery, but in the mid area appeared to have a dissection which I decided to cover with a stent. I deployed 2.75 x 15 Xience drug-eluting stent where the stent was positioned under fluoroscopy guidance and deployed under its nominal pressure. The following angiogram showed great angiographic result and the procedure was completed without any complication." Per the 11/01 Heart Cath & PTCA report: Patients Admitting Diagnosis: Chest pain with history of CAD & prior stenting to the RCA, acute coronary event ruled out. Stress test (10/31) showed inferior/lateral ischemia. Left Heart Catheterization: Severe in-stent re-stenosis on multiple areas of RCA. Post-Operative Diagnosis: Critical in-stent restenosis involving the mid right coronary artery. I did perform successful angioplasty and stenting of the right coronary artery with an excellent angiographic result. Procedure performed: Left Heart Catheterization & PTCA with FARIHA stent to RCA History/Risk Factors Per the 10/31 History & Physical History of Present Illness: This is a 60-year-old female patient with past medical history of Diabetes Mellitus Type 2, Hypertension, Hyperlipidemia, Hypothyroidism, CAD with PCI to the mid RCA. Clinical Indicators: Presented to the ED on 10/30 with Chest Pain x2 days, intermittent, retrosternal, cough & some SOB. Admitted with Chest Pain & Unstable Angina Pectoris. 10/30 VS: T 98.3, P 60 - 43; R 20, BP 167/65, PO 100 RA 11/01 VS: T98.6, P 50-53, R 16, BP 113/56, PO 97 RA 10/30 LAB: D Dimer 0.85, Troponin <0.012, <0.012. Treatment 10/30: po Aspirin 324 mg x1, Nitro sl 0.4 mg x1, IV Heparin 4,000 units x1, po Lasix 20 mg sched, IV fluid 1,000 mls @ 20 mls/hr q24H. 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 Please clarify if there is relationship between the PTCA ballooning and the coronary dissection described above: [ ] Dissection is a complication of surgical procedure [ ] Dissection is an expected outcome of the surgical procedure [ ] Dissection is related to patients co-morbid condition(s), please specify: [ ] Other please specify: [ ] Unable to determine (Template Last Revised: September 2020) MTDD
--- NOTE | 2020-11-12 16:07 | ECHOF ---
Referral Reason:chest pain MEASUREMENTS -------- HEIGHT: 172.7 cm WEIGHT: 124.3 kg BP: RVIDd: 3.6 cm (< 3.3) IVSd: 1.3 cm (0.6 - 1.1) LVIDd: 4.4 cm (3.9 - 5.3) LVPWd: 1.4 cm (0.6 - 1.1) IVSs: 1.9 cm LVIDs: 2.5 cm LVPWs: 2.0 cm LAESV Index (A-L): 18.27 ml/m Ao Diam: 3.2 cm (2.0 - 3.7) AV Cusp: 2.0 cm (1.5 - 2.6) LA Diam: 3.8 cm (2.7 - 3.8) MV EXCURSION: 16.898 mm (> 18.000) MV EF SLOPE: 61 mm/s (70 - 150) EPSS: 0.8 cm MV E Chai: 1.09 m/s MV DecT: 392 ms MV A Chai: 1.10 m/s MV E/A Ratio: 1.00 AV maxP.68 mmHg AV meanP.20 mmHg RAP: 5.00 mmHg RVSP: 33.01 mmHg FINDINGS -------- This was a technically good study. The left ventricular size is normal. There is mild concentric left ventricular hypertrophy. Overa ll left ventricular systolic function is normal with, an EF between 55 - 60 %. Normal LAP Grade 1 D iastolic Dysfunction. The right ventricle is normal in size. The left atrial size is normal. Normal LA size by volume 22+/-6 ml/m2. The right atrial size is normal. Interatrial and interventricular septum intact. There is mild aortic stenosis present. Peak/mean gradient across the Aortic Valve is 21.68mmHg / 12 .20mmHg. Can't exclude possible Bicuspid Aov. The mitral valve is normal. The mitral valve leaflets are mildly thickened. There is trace mitral regurgitation. The tricuspid valve appears structurally normal. Trace tricuspid regurgitation present. Right milka tricular systolic pressure is normal at < 35 mmHg. There is no pulmonic regurgitation present. The aortic root size is normal. Normal inferior vena cava with normal inspiratory collapse consistent with estimated right atrial pre ssure of 5 mmHg. There is no pericardial effusion. CONCLUSIONS -------- 1. The left ventricular size is normal. 2. There is mild concentric left ventricular hypertrophy. 3. Overall left ventricular systolic function is normal with, an EF between 55 - 60 %. 4. Normal LAP Grade 1 Diastolic Dysfunction. 5. There is mild aortic stenosis present. 6. Peak/mean gradient across the Aortic Valve is 21.68mmHg / 12.20mmHg. 7. Can't exclude possible Bicuspid Aov. 8. The mitral valve leaflets are mildly thickened. 9. There is trace mitral regurgitation. 10. Trace tricuspid regurgitation present. 11. There is no pericardial effusion. REHABILITATION DIRECTOR: Della Aguilar RDCS
== END 2020-11-02 11:33 | disposition home or self-care (01) | DRG 246 ==
LOC: EC 16:09 → 6NMEDSUR 18:55 → OBSVTOIN 11-01 09:13
PROVIDERS: ADMIT Internal Medicine; ATTEND Internal Medicine
PROC: 027034Z Dilation of Coronary Artery, One Artery with Drug-eluting Intraluminal Device, Percutaneous Approach (ICD-10-PCS; principal; 2020-11-01 12:00)
PROC: B2111ZZ Fluoroscopy of Multiple Coronary Arteries using Low Osmolar Contrast (ICD-10-PCS; principal; 2020-11-01 12:00)
PROC: 4A023N7 Measurement of Cardiac Sampling and Pressure, Left Heart, Percutaneous Approach (ICD-10-PCS; principal; 2020-11-01 12:00)
DX: T82.855A Stenosis of coronary artery stent, initial encounter (principal); I25.42 Coronary artery dissection; I25.110 Atherosclerotic heart disease of native coronary artery with unstable angina pectoris; E11.9 Type 2 diabetes mellitus without complications; I11.9 Hypertensive heart disease without heart failure; Z20.822 Contact with and (suspected) exposure to COVID-19; K30 Functional dyspepsia; E78.5 Hyperlipidemia, unspecified; E03.9 Hypothyroidism, unspecified; F32.9 Major depressive disorder, single episode, unspecified; Z79.82 Long term (current) use of aspirin; Z79.84 Long term (current) use of oral hypoglycemic drugs; Z79.890 Hormone replacement therapy; Z79.899 Other long term (current) drug therapy; Y83.1 Surgical operation with implant of artificial internal device as the cause of abnormal reaction of the patient, or of later complication, without mention of misadventure at the time of the procedure; Z88.1 Allergy status to other antibiotic agents; Z91.018 Allergy to other foods; Z91.048 Other nonmedicinal substance allergy status; Z86.79 Personal history of other diseases of the circulatory system; Z87.39 Personal history of other diseases of the musculoskeletal system and connective tissue; Z95.5 Presence of coronary angioplasty implant and graft; Z90.89 Acquired absence of other organs; Z98.890 Other specified postprocedural states; Z82.49 Family history of ischemic heart disease and other diseases of the circulatory system; Z80.0 Family history of malignant neoplasm of digestive organs; Z80.3 Family history of malignant neoplasm of breast; Z83.2 Family history of diseases of the blood and blood-forming organs and certain disorders involving the immune mechanism; Z83.3 Family history of diabetes mellitus; Z83.49 Family history of other endocrine, nutritional and metabolic diseases; Z82.3 Family history of stroke; Z82.5 Family history of asthma and other chronic lower respiratory diseases
CPT/HCPCS: 36415; 71046; 71275; 78452; 80048; 80053; 80061; 82550; 82565; 83735; 83880; 84484; 85025; 85347; 85379; 85610; 85730; 87635; 93005; 93017; 93306; 93458; 94760; 99285

== ENCOUNTER → 2020-12-17 | Outpatient (CLI) | payer BC ==
[2020-12-17 18:14] LABS: Chol/HDL Ratio 5.54; LDL Cholesterol,Calculated 117.8 mg/dL (0.0-131.0); VLDL Calculation 41.2 mg/dL (5.00-40.00)
== END | disposition home or self-care (01) ==
LOC: LABWHC1 09:41
PROVIDERS: ATTEND Internal Medicine Clinical Cardiac Electrophysiology
DX: E78.5 Hyperlipidemia, unspecified (principal); I25.10 Atherosclerotic heart disease of native coronary artery without angina pectoris
CPT/HCPCS: 36415; 80061

== ENCOUNTER 2021-04-10 16:40 | Observation (INO) | payer BC ==
[2021-04-10] MEDS ORDERED: NITROGLYCERIN OINT 1 INCH/GM PACKET TOPICAL STA (17:19)
[2021-04-10] MEDS ORDERED: ASPIRIN 81 MG PO STA (17:19)
--- NOTE | 2021-04-10 17:25 | ED ---
Chest Pain HPI - General Chief Complaint: Chest Pain Stated Complaint: Chest Pain Time Seen by Provider: 04/10/21 17:10 Source: patient, family, RN notes reviewed, old records reviewed Mode of arrival: wheelchair Limitations: no limitations - History of Present Illness Initial Comments: 61-year-old well-appearing white female, alert and oriented 4, presents to the emergency room with complaints of substernal chest pain that started at 11:00 while she was working. She states that she was sitting as a [place] when the pain started. She describes it as a tightness and heaviness. She states that she had a cardiac stent placed in September of this year with Dr. Haro. She states that she did take 3 nitroglycerin with no relief. She also has a frontal headache. She denies any nausea vomiting or fevers. She states that she did have an occasional cough that is nonproductive. She also states that she did not take her morning medications today. MD Complaint: chest pain -: hour(s) (6) Onset: other (Sitting as a [place]) Pain Location: substernal Pain Radiation: none Severity scale (1-10): 8 Quality: tightness Consistency: constant Improves With: nothing Worsens With: nothing Anginal Symptoms: other (Shortness of breath) Treatments Prior to Arrival: nitroglycerin - Related Data Home Medications Medication Instructions Recorded Confirmed Aspirin 81 mg PO HS 07/20/14 10/30/20 Furosemide [Lasix] 20 mg PO MOWEFR 07/20/14 10/30/20 Sertraline HCl 100 mg PO DAILY 07/20/14 10/30/20 Atorvastatin [Lipitor] 40 mg PO HS 10/30/20 10/30/20 Benefiber Gummies 2 tab PO BID PRN 10/30/20 10/30/20 Empagliflozin [Jardiance] 25 mg PO DAILY 10/30/20 10/30/20 Levothyroxine Sodium [Synthroid] 50 mcg PO DAILY 10/30/20 10/30/20 Metoprolol Succinate [Toprol XL] 25 mg PO DAILY 10/30/20 10/30/20 Psyllium Husk (with Sugar) 1 tsp PO DAILY PRN 10/30/20 10/30/20 [Metamucil Powder] sitaGLIPtin PHOSPHATE [Januvia] 100 mg PO DAILY 10/30/20 10/30/20 Previous Rx's Medication Instructions Recorded Clopidogrel [Plavix] 75 mg PO DAILY 30 Days #30 tab 11/01/20 Nitroglycerin Sl Tabs [Nitrostat] 0.4 mg SUBLINGUAL Q5M PRN #100 tab 11/02/20 metFORMIN HCL [Glucophage] 2,000 mg PO HS #0 11/02/20 metFORMIN HCL [Glucophage] 500 mg PO DAILY #0 11/02/20 Allergies Allergy/AdvReac Type Severity Reaction Status Date / Time adhesive Allergy Rash/Hives Verified 04/10/21 16:54 eggplant Allergy Rash/Hives Verified 04/10/21 16:54 moxifloxacin HCl Allergy MEMORY LOSS Verified 04/10/21 16:54 [From Avelox] Review of Systems ROS Statement: Those systems with pertinent positive or pertinent negative responses have been documented in the HPI. ROS Other: All systems not noted in ROS Statement are negative. EKG Findings - EKG Results: EKG: sinus rhythm, not changed from: (October 31, 2020) EKG shows: bradycardia (Ventricular rate 49, IN interval of 0.158, QRS of 0.78, QTc of 4.422) Past Medical History Past Medical History: Coronary Artery Disease (CAD), Diabetes Mellitus, Hyperlipidemia, Thyroid Disorder Additional Past Medical History / Comment(s): regular irregular HR History of Any Multi-Drug Resistant Organisms: None Reported Past Surgical History: Cardiac Ablation, Heart Catheterization With Stent, Orthopedic Surgery, Tonsillectomy Additional Past Surgical History / Comment(s): heart stents x2,d&c,lenny carpel tunnel Past Anesthesia/Blood Transfusion Reactions: No Reported Reaction Date of Last Stent Placement:: 2013? Past Psychological History: Depression Smoking Status: Never smoker Past Alcohol Use History: None Reported Past Drug Use History: None Reported - Past Family History Sister(s) Family Medical History: Cancer Additional Family Medical History / Comment(s): colon,breast Father Additional Family Medical History / Comment(s): heart problems Mother Family Medical History: Deep Vein Thrombosis (DVT) General Exam Limitations: no limitations General appearance: alert, in no apparent distress Head exam: Present: atraumatic, normocephalic, normal inspection Eye exam: Present: normal appearance, PERRL, EOMI. Absent: scleral icterus, conjunctival injection, periorbital swelling ENT exam: Present: normal exam, normal oropharynx, mucous membranes moist Neck exam: Present: normal inspection, full ROM. Absent: tenderness, meningismus, lymphadenopathy Respiratory exam: Present: normal lung sounds bilaterally. Absent: respiratory distress, wheezes, rales, rhonchi, stridor, accessory muscle use, decreased breath sounds Cardiovascular Exam: Present: normal rhythm, bradycardia, normal heart sounds. Absent: systolic murmur, diastolic murmur, rubs, gallop, clicks, JVD (49) GI/Abdominal exam: Present: soft, tenderness (Right upper quadrant), normal bowel sounds. Absent: mass, hernia Extremities exam: Present: normal inspection, full ROM, normal capillary refill. Absent: tenderness, pedal edema, joint swelling, calf tenderness Back exam: Present: normal inspection, full ROM. Absent: tenderness, CVA tenderness (R), CVA tenderness (L), rash noted Neurological exam: Present: alert, oriented X3, CN II-XII intact Psychiatric exam: Present: normal affect, normal mood Skin exam: Present: warm, dry, intact, normal color. Absent: rash, cyanosis, diaphoretic Course Vital Signs 04/10/21 04/10/21 04/10/21 16:52 17:30 19:03 Temperature 98.1 F Pulse Rate 53 L 49 L 47 L Respiratory 20 29 H 20 Rate Blood Pressure 175/77 166/8 172/73 O2 Sat by Pulse 99 95 96 Oximetry - Reevaluation(s) Reevaluation #1: 04/10/21 19:51 Patient states that she did not get relief with aspirin and nitro. She will be given Dilaudid, admitted to hospital for ACS. 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 She states that it is substernal still rated at 6 out of 10. Troponin is negative at 0.012 and her EKG shows sinus bradycardia at [address] elevation. There are no acute changes compared to 10/31/2020. No evidence of leukocytosis. Her potassium is 4.2, magnesium is 1.9. She states that she had a stent placed with Dr. Otero in October. She was given aspirin and Nitropaste and will be admitted to the hospital. Case discussed with Dr. Nugent. Disposition Clinical Impression: ACS (acute coronary syndrome) Disposition: ADMITTED IP TO THIS HOSP Condition: Good Referrals: Puma Ruiz MD [Primary Care Provider] - 1-2 days Decision Date: 04/10/21 Decision Time: 19:52
[2021-04-10] MEDS ORDERED: ONDANSETRON 4 MG/2 ML VIAL IVP STA (17:46)
[2021-04-10 17:51] LABS: Basophils % (A) 0 %; Eosinophils # (A) 0.5 k/uL (0-0.7); Eosinophils % (A) 6 %; HCT 37.9 % (34.0-46.0); HGB 13.7 gm/dL (11.4-16.0); Lymphocytes # (A) 1.9 k/uL (1.0-4.8); Lymphocytes % (A) 24 %; MCH 32.1 pg (25.0-35.0); MCHC 36.3 g/dL (31.0-37.0); MCV 88.4 fL (80.0-100.0); Mean Platelet Volume 7.6; Monocytes # (A) 0.4 k/uL (0-1.0); Monocytes % (A) 5 %; Neutrophils # (A) 5.1 k/uL (1.3-7.7); Neutrophils % (A) 64 %; Platelet Count 211 k/uL (150-450); RBC 4.29 m/uL (3.80-5.40); RDW 13.1 % (11.5-15.5)
[2021-04-10 18:05] LABS: ALT 38 U/L (4-34); AST 37 U/L (14-36); African American GFR (CKD) >90 (>60 ml/min/1.73 sqM); Albumin 3.8 g/dL (3.5-5.0); Alkaline Phosphatase 128 U/L (38-126); Amylase 43 U/L (30-110); Anion Gap 6 mmol/L; Blood Urea Nitrogen 20 mg/dL (7-17); Calcium 9.5 mg/dL (8.4-10.2); Carbon Dioxide 27 mmol/L (22-30); Chloride 103 mmol/L (98-107); Glucose 165 mg/dL (74-99); Lipase 140 U/L (23-300); Magnesium 1.9 mg/dL (1.6-2.3); Non-African American GFR(CKD) >90 (>60 ml/min/1.73 sqM); Potassium 4.2 mmol/L (3.5-5.1); Sodium 136 mmol/L (137-145); Total Bilirubin 0.7 mg/dL (0.2-1.3); Total Protein 6.5 g/dL (6.3-8.2)
[2021-04-10 18:12] LABS: INR 0.9 (<1.2); Partial Thromboplastin Time 23.9 sec (22.0-30.0); Prothrombin Time 10.2 sec (9.0-12.0)
--- NOTE | 2021-04-10 18:46 | XR ---
EXAMINATION TYPE: XR chest 2V DATE OF EXAM: 04/10/2021 CLINICAL HISTORY: Chest Pain. TECHNIQUE: Frontal and lateral view of the chest. COMPARISON: 10/30/2020 FINDINGS: The cardiomediastinal silhouette is within normal limits for size. Pulmonary vasculature i s normal. There is no focal air space opacity. No pleural effusion. No pneumothorax seen. No acute d isplaced osseous fracture. IMPRESSION: No acute cardiopulmonary process.
[2021-04-10] MEDS ORDERED: NITROGLYCERIN SL TABS 0.4 MG TAB SUBLINGUAL PRN (19:39)
[2021-04-10] MEDS ORDERED: HEPARIN SODIUM 1,000 UN/ML (10ML VL) IV ONE (19:39)
[2021-04-10] MEDS ORDERED: HYDROmorphone 0.5 MG/0.5 ML SYRINGE IVP STA (19:41)
[2021-04-10 20:23] LABS: Appearance,Urine Clear (Clear); Bilirubin,Urine Negative (Negative); Blood,Urine Negative (Negative); Color,Urine Yellow; Glucose,Urine (UA) Negative (Negative); Ketones,Urine Negative (Negative); Leukocyte Esterase,Urine Moderate (Negative); Mucus,Urine Rare /hpf; Nitrite,Urine Negative (Negative); Protein,Urine Negative (Negative); RBC,Urine 2 /hpf (0-5); Specific Gravity,Urine 1.023 (1.001-1.035); Squamous Epithelial Cell,Urine <1 /hpf (0-4); Urobilinogen,Urine <2.0 mg/dL (<2.0); WBC,Urine 4 /hpf (0-5)
[2021-04-10 21:25] VITALS: RESP 18
[2021-04-10] MEDS ORDERED: NALOXONE 0.4 MG/ML 1 ML VIAL IV PRN (22:07)
[2021-04-11 07:58] VITALS: PULSE 53; TEMP 98.5
[2021-04-11 07:59] VITALS: BP 128/71
[2021-04-11] MEDS ORDERED: FUROSEMIDE 20 MG TAB PO SCH (08:30)
[2021-04-11] MEDS ORDERED: DOBUTamine DRIP for NUC MED 500 MG in DEXTROSE/WATER 1 250ML.BAG IV PRN (08:30)
[2021-04-11] MEDS ORDERED: ATORVASTATIN 80 MG TAB PO SCH ×2 (09:00→21:00)
[2021-04-11] MEDS ORDERED: ASPIRIN 81 MG PO SCH ×2 (09:00→21:00)
[2021-04-11] MEDS ORDERED: ASPIRIN 325 MG TAB PO SCH (09:00)
[2021-04-11] MEDS ORDERED: METOPROLOL SUCCINATE (ER) 25 MG TAB.ER.24H PO SCH (09:00)
[2021-04-11] MEDS ORDERED: SERTRALINE 100 MG TAB PO SCH (09:00)
[2021-04-11] MEDS ORDERED: LOSARTAN 25 MG TAB PO SCH (09:00)
[2021-04-11] MEDS ORDERED: LINAGLIPTIN 5 MG TABLET PO SCH (09:00)
[2021-04-11] MEDS ORDERED: CLOPIDOGREL 75 MG TAB PO SCH ×2 (09:00)
[2021-04-11] MEDS ORDERED: ACETAMINOPHEN TAB 325 MG TAB PO PRN (09:22)
[2021-04-11 10:56] LABS: Chol/HDL Ratio 5.71
--- NOTE | 2021-04-11 11:08 | P.CRDCN ---
History of Present Illness Consult date: 04/11/21 History of present illness: HISTORY OF PRESENT ILLNESS: This is a 61-year-old female with a past medical history significant for coronary artery disease with recent stenting to the RCA in October 2020, Hypertension, Hyperlipidemia, and diabetes. Patient follows in the office with Dr. Tam. We have been asked to see the patient in consultation for chest pain. Patient examined at the bedside. 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 The pain started around 11 AM. She states the pain was in the middle of her chest. She reports that felt like a pressure and tightness. She denies any radiation of the pain. She denied any shortness of breath until she came to the hospital and then she began to feel dyspneic. She reports nausea and states she almost 0 upon presentation to the emergency room. She states that she took nitro work with very little relief. She states the pain she experienced yesterday feels different than when she had her stents placed in October 2020. At the time of my examination this morning, the patient denies chest pain or pressure. EKG reveals sinus mechanism with no signs of acute ischemia Chest xray negative for acute process Laboratory data: WBC 8.0. Hemoglobin 13.7. Platelet count 211. Sodium 136. Potassium 4.2. BUN 20. Creatinine 0.68. Magnesium 1.9. Troponin negative 3. Current home cardiac medications include aspirin 81 mg daily, Plavix 75 mg daily, Lipitor 80 mg daily, Lasix 20 mg Wednesday, losartan 25 mg daily, metoprolol succinate 25 mg daily Most recent echocardiogram obtained in October 2020 revealed ejection fraction 55- 60%. Mild aortic stenosis. Trace mitral regurgitation. Trace tricuspid regurgitation Cardiac catheterization history: October 2020 with PCI to the RCA REVIEW OF SYSTEMS: At the time of my exam: CONSTITUTIONAL: Denies fever or chills. HEENT: Denies blurred vision, vision changes, or eye pain. Denies hemoptysis CARDIOVASCULAR: Denies chest pain. Denies orthopnea. Denies PND. Denies palpitations RESPIRATORY: Denies shortness of breath. GASTROINTESTINAL: Denies abdominal pain. Denies nausea or vomiting. HEMATOLOGIC: Denies bleeding disorders. GENITOURINARY: Denies any blood in urine. SKIN: Denies pruitis. Denies rash. PHYSICAL EXAM: VITAL SIGNS: Reviewed. GENERAL: Well-developed in no acute distress. HEENT: Head is normocephalic. Pupils are equal, round. Sclerae anicteric. Mucous membranes of the mouth are moist. Neck supple. No JVD or thyromegaly LUNGS: Respirations even and unlabored. Lungs essentially clear to auscultation bilaterally. HEART: Regular rate and rhythm. S1 and S2 heard. ABDOMEN: Soft. Nondistended. Nontender. EXTREMITIES: Normal range of motion. No clubbing or cyanosis. Peripheral pulses intact. No lower extremity edema NEUROLOGIC: Awake and alert. Oriented x 3. ASSESSMENT: Chest pain, troponins negative 3 Coronary artery disease with previous PCI Hypertension Hyperlipidemia Diabetes mellitus PLAN: No need to repeat echocardiogram Resume home cardiac medications Patient to undergo dobutamine stress test today If negative, the patient may be discharged home today and follow-up on an outpatient basis Nurse practitioner note has been reviewed by physician. Signing provider agrees with the documented findings, assessment, and plan of care. Past Medical History Past Medical History: Coronary Artery Disease (CAD), Diabetes Mellitus, Hyperlipidemia, Thyroid Disorder Additional Past Medical History / Comment(s): regular irregular HR History of Any Multi-Drug Resistant Organisms: None Reported Past Surgical History: Cardiac Ablation, Heart Catheterization With Stent, Orthopedic Surgery, Tonsillectomy Additional Past Surgical History / Comment(s): heart stents x3,d&c,lenny carpel tunnel Past Anesthesia/Blood Transfusion Reactions: No Reported Reaction Date of Last Stent Placement:: 2020 Past Psychological History: Depression Smoking Status: Never smoker Past Alcohol Use History: None Reported Past Drug Use History: None Reported - Past Family History Sister(s) Family Medical History: Cancer Additional Family Medical History / Comment(s): colon,breast Father Additional Family Medical History / Comment(s): heart problems Mother Family Medical History: Deep Vein Thrombosis (DVT) Medications and Allergies Home Medications Medication Instructions Recorded Confirmed Type Furosemide [Lasix] 20 mg PO MOWEFR 07/20/14 04/10/21 History Sertraline HCl 100 mg PO DAILY 07/20/14 04/10/21 History Levothyroxine Sodium [Synthroid] 50 mcg PO AC-BRKFST 10/30/20 04/10/21 History Metoprolol Succinate [Toprol XL] 25 mg PO DAILY 10/30/20 04/10/21 History sitaGLIPtin PHOSPHATE [Januvia] 100 mg PO DAILY 10/30/20 04/10/21 History Clopidogrel [Plavix] 75 mg PO DAILY 30 Days #30 tab 11/01/20 04/10/21 Rx metFORMIN HCL [Glucophage] 2,000 mg PO HS #0 11/02/20 04/10/21 Rx metFORMIN HCL [Glucophage] 500 mg PO DAILY #0 11/02/20 04/10/21 Rx Aspirin EC [Ecotrin Low Dose] 81 mg PO HS 04/10/21 04/10/21 History Atorvastatin [Lipitor] 80 mg PO HS 04/10/21 04/10/21 History Losartan [Cozaar] 25 mg PO DAILY 04/10/21 04/10/21 History Nitroglycerin Sl Tabs [Nitrostat] 0.4 mg SL Q5M PRN 04/10/21 04/10/21 History Allergies Allergy/AdvReac Type Severity Reaction Status Date / Time adhesive Allergy Rash/Hives Verified 04/10/21 20:40 eggplant Allergy Rash/Hives Verified 04/10/21 20:40 moxifloxacin HCl AdvReac MEMORY LOSS Verified 04/10/21 20:40 [From Avelox] Physical Exam Vitals: Vital Signs Temp Pulse Pulse Resp BP BP Pulse Ox 04/11/21 07:00 98.5 F 53 L 18 128/71 98 04/11/21 01:16 98.6 F 51 L 18 112/54 95 04/11/21 01:15 56 L 04/10/21 23:44 56 L 18 04/10/21 23:14 98.8 F 56 L 18 139/70 93 L 04/10/21 22:00 52 L 18 147/73 94 L 04/10/21 21:00 49 L 18 137/60 99 04/10/21 19:03 47 L 20 172/73 96 04/10/21 17:30 49 L 29 H 166/8 95 04/10/21 16:52 98.1 F 53 L 20 175/77 99 Intake and Output 04/10/21 04/11/21 04/11/21 22:59 06:59 14:59 Intake Total 250 Balance 250 Intake: Oral 250 Other: # Voids 3 Weight 112.037 kg 112.037 kg Results 04/10/21 17:28 04/10/21 17:28 Cardiac Enzymes 04/10/21 04/10/21 04/10/21 Range/Units 17:28 17:28 21:23 AST 37 H (14-36) U/L Troponin I <0.012 <0.012 (0.000-0.034) ng/mL 04/11/21 Range/Units 01:23 AST (14-36) U/L Troponin I <0.012 (0.000-0.034) ng/mL Coagulation 04/10/21 Range/Units 17:28 PT 10.2 (9.0-12.0) sec APTT 23.9 (22.0-30.0) sec CBC 04/10/21 Range/Units 17:28 WBC 8.0 (3.8-10.6) k/uL RBC 4.29 (3.80-5.40) m/uL Hgb 13.7 (11.4-16.0) gm/dL Hct 37.9 (34.0-46.0) % Plt Count 211 (150-450) k/uL Comprehensive Metabolic Panel 04/10/21 Range/Units 17:28 Sodium 136 L (137-145) mmol/L Potassium 4.2 (3.5-5.1) mmol/L Chloride 103 (98-107) mmol/L Carbon Dioxide 27 (22-30) mmol/L BUN 20 H (7-17) mg/dL Creatinine 0.68 (0.52-1.04) mg/dL Glucose 165 H (74-99) mg/dL Calcium 9.5 (8.4-10.2) mg/dL AST 37 H (14-36) U/L ALT 38 H (4-34) U/L Alkaline Phosphatase 128 H (38-126) U/L Total Protein 6.5 (6.3-8.2) g/dL Albumin 3.8 (3.5-5.0) g/dL Current Medications Generic Name Dose Route Start Last Admin Trade Name Freq PRN Reason Stop Dose Admin Aspirin 81 mg 04/11/21 09:00 Aspirin 81 Mg PO DAILY [facility] Atorvastatin Calcium 80 mg 04/11/21 09:00 Atorvastatin 80 Mg Tab PO DAILY [facility] Clopidogrel Bisulfate 75 mg 04/11/21 09:00 Clopidogrel 75 Mg Tab PO DAILY [facility] Naloxone HCl 0.2 mg 04/10/21 22:07 Naloxone 0.4 Mg/Ml 1 Ml Vial IV Q2M PRN Opioid Reversal Nitroglycerin 0.4 mg 04/10/21 19:39 Nitroglycerin Sl Tabs 0.4 Mg Tab SUBLINGUAL Q5M PRN Chest Pain Intake and Output 04/10/21 04/11/21 04/11/21 22:59 06:59 14:59 Intake Total 250 Balance 250 Intake: Oral 250 Other: # Voids 3 Weight 112.037 kg 112.037 kg 04/10/21 17:28 04/10/21 17:28
--- NOTE | 2021-04-11 12:24 | P.HPIM ---
History of Present Illness H&P Date: 04/11/21 HISTORY AND PHYSICAL AND DISCHARGE SUMMARY: HISTORY OF PRESENT ILLNESS This is a 60-year-old female patient of Dr. Ruiz and Dr. Tam with past medical history of diabetes mellitus type 2, hypertension, hyperlipidemia, hypothyroidism, coronary artery disease with PCI to the mid RCA October 2020. 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 She denies any radiation of the pain. She did complain of a headache at the time. She did not have shortness of breath or nausea at onset but when she arrived to the hospital she was short of breath and feeling nauseated. She was given nitro paste which did not improve her symptoms. Echocardiogram from October 2020 revealed EF of 55-60%, mild concentric left hypertrophy, mild aortic stenosis, trace mitral regurgitation, trace tricuspid regurgitation. Patient presented to [facility] emergency center for evaluation. She was afebrile, heart rate 49, blood pressure 166/80, pulse ox 95 % on room air. EKG was sinus rhythm with no acute ST changes. CBC was normal. Sodium 136, potassium 4.2, BUN 20 creatinine 0.68. Blood sugar 165. AST 37, ALT 38, alkaline phosphatase 128. Troponins negative 3 draws. Triglycerides 679, cholesterol 200, HDL 35. Lipase 140. Urinalysis showed moderate leukoesterase, wbc's 4. Coronavirus not detected. Patient was placed on the observation unit, cardiology consult and dobutamine stress test was ordered, patient was subsequently cleared for discharge by cardiology. Patient will be discharged home today in stable condition.. REVIEW OF SYSTEMS At the time of evaluation: Constitutional: No fever, no chills, no night sweats. No weight change. No weakness, fatigue or lethargy. No daytime sleepiness. EENT: No headache. No blurred vision or double vision, no loss of vision. No loss of Hearing, no ringing in the ears, no dizziness. No nasal drainage or congestion. No epistaxis. No sore throat. Lungs: No shortness of breath, cough, no sputum production. No wheezing. Cardiovascular: Denies chest pain, no lower extremity edema. No palpitations. No paroxysmal nocturnal dyspnea. No orthopnea. No lightheadedness or dizziness. No syncopal episodes. Abdominal: No abdominal pain. No nausea, vomiting. No diarrhea. No constipation. No bloody or tarry stools.. No loss of appetite. Genitourinary: No dysuria, increased frequency, urgency. No urinary retention. Musculoskeletal: No myalgias. No muscle weakness, no gait dysfunction, no frequent falls. Reports back pain. No neck pain. Integumentary: No wounds, no lesions. No rash or pruritus. No unusual bruising. No change in hair or nails. Neurologic: No aphasia. No facial droop. No change in mentation. No head injury. No headache. No paralysis. No paresthesia. Psychiatric: No depression. No anxiety. No mood swings. Endocrine: No abnormal blood sugars. No weight change. No excessive sweating or thirst. No cold intolerance. MEDICAL HISTORY DIABETES MELLITUS TYPE 2 HYPERTENSION HYPERLIPIDEMIA HYPOTHYROIDISM CORONARY ARTERY DISEASE STATUS POST PCI OF THE MID RCA OCTOBER 2020. SURGICAL HISTORY Heart catheterization with stent to the mid RCA, colonoscopy with snare polypectomy negative for malignancy, tonsillectomy, bilateral carpal tunnel release, cardiac ablation. SOCIAL HISTORY Patient is a lifelong nonsmoker, no alcohol use or abuse. 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 Patient lives at home with her . FAMILY HISTORY Father at age 79 from CVA. He had a history of coronary artery disease with CABG in his late 50s. He has history of pacemaker insertion. No diabetes. Mother at age 85 from pulmonary fibrosis. No diabetes history. Patient does not have any brothers. Patient has 3 sisters and one is at age 49 fro m colon cancer. One has Gene's and one has diabetes. Patient has one daughter with no major medical problems. PHYSICAL EXAMINATION Gen: This A 60-year-old female patient. She is resting in bed and appears to be comfortable and in no acute distress. HEENT: Head is atraumatic, normocephalic. Pupils equal, round. Sclerae is anicteric. NECK: Supple. No JVD. No lymphadenopathy. No thyromegaly. LUNGS: Clear to auscultation. No wheezes or rhonchi. No intercostal retractions. HEART: Regular rate and rhythm. No murmur. ABDOMEN: Soft. Bowel sounds are present. No masses. No tenderness. EXTREMITIES: No pedal edema. No calf tenderness. dorsalis pedis +2 bilaterally. NEUROLOGICAL: Patient is awake, alert and oriented x3. Cranial nerves 2 through 12 are grossly intact. ASSESSMENT AND PLAN 1. Chest pain with negative troponins, acute coronary syndrome ruled out. Cardiology consult appreciated. Dobutamine stress test. 2. Diabetes mellitus type 2, most recent A1c 5.2. Continue NovoLog scale before meals and at bedtime, metformin on hold and continue Tradjenta 5 mg daily. 3. History of coronary artery disease with PCI to the mid RCA and follows with Dr Tam. 4. Hypertension. Continue Lasix 20 mg on Wednesday. 5. Hyperlipidemia. Continue atorvastatin 40 mg daily. 6. Hypothyroidism. Continue levothyroxine 50 g daily. Patient is observation status. DISCHARGE PLAN Home. Impression and plan of care have been directed as dictated by the signing physician. Polly Lewis nurse practitioner acting as scribe for signing physician. Past Medical History Past Medical History: Coronary Artery Disease (CAD), Diabetes Mellitus, H yperlipidemia, Thyroid Disorder Additional Past Medical History / Comment(s): regular irregular HR History of Any Multi-Drug Resistant Organisms: None Reported Past Surgical History: Cardiac Ablation, Heart Catheterization With Stent, Orthopedic Surgery, Tonsillectomy Additional Past Surgical History / Comment(s): heart stents x3,d&c,lenny carpel tunnel Past Anesthesia/Blood Transfusion Reactions: No Reported Reaction Date of Last Stent Placement:: 2020 Past Psychological History: Depression Smoking Status: Never smoker Past Alcohol Use History: None Reported Past Drug Use History: None Reported - Past Family History Sister(s) Family Medical History: Cancer Additional Family Medical History / Comment(s): colon,breast Father Additional Family Medical History / Comment(s): heart problems Mother Family Medical History: Deep Vein Thrombosis (DVT) Medications and Allergies Home Medications Medication Instructions Recorded Confirmed Type Furosemide [Lasix] 20 mg PO MOWEFR 07/20/14 04/10/21 History Sertraline HCl 100 mg PO DAILY 07/20/14 04/10/21 History Levothyroxine Sodium [Synthroid] 50 mcg PO AC-BRKFST 10/30/20 04/10/21 History Metoprolol Succinate [Toprol XL] 25 mg PO DAILY 10/30/20 04/10/21 History sitaGLIPtin PHOSPHATE [Januvia] 100 mg PO DAILY 10/30/20 04/10/21 History Clopidogrel [Plavix] 75 mg PO DAILY 30 Days #30 tab 11/01/20 04/10/21 Rx metFORMIN HCL [Glucophage] 2,000 mg PO HS #0 11/02/20 04/10/21 Rx metFORMIN HCL [Glucophage] 500 mg PO DAILY #0 11/02/20 04/10/21 Rx Aspirin EC [Ecotrin Low Dose] 81 mg PO HS 04/10/21 04/10/21 History Atorvastatin [Lipitor] 80 mg PO HS 04/10/21 04/10/21 History Losartan [Cozaar] 25 mg PO DAILY 04/10/21 04/10/21 History Nitroglycerin Sl Tabs [Nitrostat] 0.4 mg SL Q5M PRN 04/10/21 04/10/21 History Allergies Allergy/AdvReac Type Severity Reaction Status Date / Time adhesive Allergy Rash/Hives Verified 04/10/21 20:40 eggplant Allergy Rash/Hives Verified 04/10/21 20:40 moxifloxacin HCl AdvReac MEMORY LOSS Verified 04/10/21 20:40 [From Avelox] Physical Exam Vitals: Vital Signs Temp Pulse Pulse Resp BP BP Pulse Ox 04/11/21 01:16 98.6 F 51 L 18 112/54 95 04/11/21 01:15 56 L 04/10/21 23:44 56 L 18 04/10/21 23:14 98.8 F 56 L 18 139/70 93 L 04/10/21 22:00 52 L 18 147/73 94 L 04/10/21 21:00 49 L 18 137/60 99 04/10/21 19:03 47 L 20 172/73 96 04/10/21 17:30 49 L 29 H 166/8 95 04/10/21 16:52 98.1 F 53 L 20 175/77 99 Intake and Output 04/10/21 04/11/21 04/11/21 22:59 06:59 14:59 Intake Total 250 Balance 250 Intake: Oral 250 Other: # Voids 3 Weight 112.037 kg 112.037 kg Results CBC & Chem 7: 04/10/21 17:28 04/10/21 17:28 Labs: Abnormal Lab Results - Last 24 Hours (Table) 04/10/21 04/10/21 Range/Units 17:28 19:52 Sodium 136 L (137-145) mmol/L BUN 20 H (7-17) mg/dL Glucose 165 H (74-99) mg/dL AST 37 H (14-36) U/L ALT 38 H (4-34) U/L Alkaline Phosphatase 128 H (38-126) U/L Ur Leukocyte Esterase Moderate H (Negative) Urine Mucus Rare H (None) /hpf Thrombosis Risk Factor Assmnt - Choose All That Apply Any of the Below Risk Factors Present?: Yes Each Factor Represents 1 point: Obesity (BMI >25) Other Risk Factors: Yes Each Risk Factor Represents 2 Points: Age 61-74 years Other congenital or acquired thrombophilia - If yes, enter type in comment: No Thrombosis Risk Factor Assessment Total Risk Factor Score: 3 Thrombosis Risk Factor Assessment Level: Moderate Risk
[2021-04-11] MEDS ORDERED: INSULIN ASPART (NovoLOG) 100 UNIT/ML VIAL SQ SCH (12:30)
[2021-04-11 20:24] LABS: Hemoglobin A1C 5.3 % (4.0-6.0)
[2021-04-12] MEDS ORDERED: LEVOTHYROXINE 50 MCG TAB PO SCH (07:30)
--- NOTE | 2021-04-14 18:51 | P.STRESS ---
- Stress Test Note Stress Test Results/Findings: Exam Performed: Exam Date: Reason for Exam: Height: 5 ft 8.5 in Weight: 112.037 kg Protocol: Stage: Duration of Exercise: Resting Heart Rate: Resting Blood Pressure: Maximum Achieved Heart Rate: Maximum Achieved Blood Pressure: 85% PMHR: 100% PMHR: METS: Technologist Comment: Stress Test Results/Findings: Baseline heart rate 51 beats and Baseline blood pressure 137/75 mmHg Patient received dobutamine infusion per protocol up to 40 mics. Her heart rate only went up to 91 beats a minute. Peak blood pressure 171/78 mmHg No definite ECG abnormalities except T-wave inversions in the inferior leads lead 3 Lead 3 has inverted T waves at baseline Frequent PVCs noted during dobutamine infusion No nonsustained ventricular tachycardia The baseline 2-D echo images showed normal LV systolic function without segmental wall motion abnormalities With dobutamine there was a stepwise increment in overall LV contractility without development of any wall motion abnormalities At recovery region global LV systolic function within normal Impression No echocardiographic evidence for ischemia No definite ECG evidence of ischemia Frequent PVCs with dobutamine
== END 2021-04-11 14:40 | disposition home or self-care (01) ==
LOC: EC 16:40 → 6NMEDSUR 22:07
PROVIDERS: ADMIT Internal Medicine; ATTEND Internal Medicine
DX: R07.2 Precordial pain (principal); R51.9 Headache, unspecified; R05 Cough; R11.0 Nausea; E03.9 Hypothyroidism, unspecified; E78.5 Hyperlipidemia, unspecified; I10 Essential (primary) hypertension; Z20.822 Contact with and (suspected) exposure to COVID-19; I25.10 Atherosclerotic heart disease of native coronary artery without angina pectoris; F32.9 Major depressive disorder, single episode, unspecified; E11.9 Type 2 diabetes mellitus without complications; Z79.84 Long term (current) use of oral hypoglycemic drugs; Z79.82 Long term (current) use of aspirin; Z79.02 Long term (current) use of antithrombotics/antiplatelets; Z79.899 Other long term (current) drug therapy; Z79.890 Hormone replacement therapy; Z91.048 Other nonmedicinal substance allergy status; Z88.1 Allergy status to other antibiotic agents; Z91.018 Allergy to other foods; Z95.5 Presence of coronary angioplasty implant and graft; Z82.3 Family history of stroke; Z80.0 Family history of malignant neoplasm of digestive organs; Z80.3 Family history of malignant neoplasm of breast; Z83.2 Family history of diseases of the blood and blood-forming organs and certain disorders involving the immune mechanism
CPT/HCPCS: 99285; 96374; 96375; 36415; 93005; 93351; 80061; 80053; 82150; 83690; 83735; 84484 ×2; 85025; 85610; 85730; 81001; 83721; 83036; 87635; 71046; G0378 ×2; J1250; J2405; J1644; J1170

== ENCOUNTER 2021-06-24 12:20 | Emergency (ER) | payer BC ==
[2021-06-24 12:32] VITALS: BP 182/77; PULSE 60; TEMP 98.8
[2021-06-24] MEDS ORDERED: SODIUM CHLORIDE 0.9% 50 ML IVPB ONE (13:45)
--- NOTE | 2021-06-24 13:53 | ED ---
URI HPI - General Chief Complaint: Upper Respiratory Infection Stated Complaint: Covid Swab Time Seen by Provider: 06/24/21 13:22 Source: patient, RN notes reviewed Mode of arrival: ambulatory Limitations: no limitations - History of Present Illness Initial Comments: Patient is a 61-year-old female with history of diabetes, thyroid disorder, presenting to the emergency department requesting a covid swab. Patient states she started feeling viral type symptoms 2 days ago, she went to her doctor's office yesterday who did a covid swab but it was a send out swab. Patient did an at home swab yesterday that was positive so her doctor recommend coming into the ER for monoclonal antibodies. Patient states she's been having body aches, chills, congestion and a mild cough. She denies any chest pain or short of breath, no nausea or vomiting. She denies any fevers or chills. She states her appetite has been the same and she is drinking fluids. Patient has no further complaints. Her vital signs are stable upon arrival. - Related Data Home Medications Medication Instructions Recorded Confirmed Furosemide [Lasix] 20 mg PO MOWEFR 07/20/14 06/24/21 Sertraline HCl 100 mg PO DAILY 07/20/14 06/24/21 Levothyroxine Sodium [Synthroid] 50 mcg PO AC-BRKFST 10/30/20 06/24/21 Metoprolol Succinate [Toprol XL] 25 mg PO DAILY 10/30/20 06/24/21 Aspirin EC [Ecotrin Low Dose] 81 mg PO HS 04/10/21 06/24/21 Atorvastatin [Lipitor] 80 mg PO HS 04/10/21 06/24/21 Losartan [Cozaar] 25 mg PO DAILY 04/10/21 06/24/21 Nitroglycerin Sl Tabs [Nitrostat] 0.4 mg SL Q5M PRN 04/10/21 06/24/21 Previous Rx's Medication Instructions Recorded Clopidogrel [Plavix] 75 mg PO DAILY 30 Days #30 tab 11/01/20 metFORMIN HCL [Glucophage] 2,000 mg PO HS #0 11/02/20 metFORMIN HCL [Glucophage] 500 mg PO DAILY #0 11/02/20 Allergies Allergy/AdvReac Type Severity Reaction Status Date / Time adhesive Allergy Rash/Hives Verified 06/24/21 13:54 eggplant Allergy Rash/Hives Verified 06/24/21 13:54 moxifloxacin HCl AdvReac MEMORY LOSS Verified 06/24/21 13:54 [From Avelox] Review of Systems ROS Statement: Those systems with pertinent positive or pertinent negative responses have been documented in the HPI. ROS Other: All systems not noted in ROS Statement are negative. Past Medical History Past Medical History: Coronary Artery Disease (CAD), Diabetes Mellitus, Hyperlipidemia, Thyroid Disorder Additional Past Medical History / Comment(s): regular irregular HR History of Any Multi-Drug Resistant Organisms: None Reported Past Surgical History: Cardiac Ablation, Heart Catheterization With Stent, Orthopedic Surgery, Tonsillectomy Additional Past Surgical History / Comment(s): heart stents x3,d&c,lenny carpel tunnel Past Anesthesia/Blood Transfusion Reactions: No Reported Reaction Date of Last Stent Placement:: 2020 Past Psychological History: Depression Smoking Status: Never smoker Past Alcohol Use History: None Reported Past Drug Use History: None Reported - Past Family History Sister(s) Family Medical History: Cancer Additional Family Medical History / Comment(s): colon,breast Father Additional Family Medical History / Comment(s): heart problems Mother Family Medical History: Deep Vein Thrombosis (DVT) General Exam - General Exam Comments Initial Comments: GENERAL: Patient is well-developed and well-nourished. Patient is nontoxic and in no acute distress. HEAD: Atraumatic, normocephalic. EYES: Pupils equal round and reactive to light, extraocular movements intact, sclera anicteric, conjunctiva are normal. Eyelids were unremarkable. ENT: Moist mucous membranes. NECK: Normal range of motion, supple without lymphadenopathy or JVD. LUNGS: Unlabored respirations. Breath sounds clear to auscultation bilaterally and equal. No wheezes rales or rhonchi. HEART: Regular rate and rhythm without murmurs, rubs or gallops. ABDOMEN: Soft, nontender, normoactive bowel sounds. No guarding, no rebound. No masses appreciated. MUSCULOSKELETAL: Normal extremities with adequate strength and normal range of motion, no pitting or edema. No clubbing or cyanosis. NEUROLOGICAL: Patient is alert and oriented x 3. SKIN: Warm, Dry, normal turgor, no rashes or lesions noted. Limitations: no limitations Course Vital Signs 06/24/21 12:30 Temperature 98.8 F Pulse Rate 60 Respiratory 19 Rate Blood Pressure 182/77 O2 Sat by Pulse 100 Oximetry Medical Decision Making - Medical Decision Making patient is a 61-year-old female presenting with viral type symptoms for the past 2 days. Her at-home Covid test was positive so her doctor recommended coming in for monoclonal antibodies. Her vital signs are stable her exam is unremarkable. She does qualify. Patient received monoclonal antibodies without adverse side effects. She is stable for discharge. She'll follow up with her primary care as needed. - Lab Data Lab Results 06/24/21 Range/Units 12:35 Coronavirus (PCR) Detected A (Not Detectd) Disposition Clinical Impression: COVID-19 Disposition: HOME SELF-CARE Condition: Stable Instructions (If sedation given, give patient instructions): Coronavirus Disease 2019 (COVID-19) Additional Instructions: Please return to the Emergency Department if symptoms worsen or any other concerns. May take Tylenol Motrin for any symptoms. Follow up with your primary care as needed. Is patient prescribed a controlled substance at d/c from ED?: No Referrals: Puma Ruiz MD [Primary Care Provider] - 1-2 days Time of Disposition: 15:28
[2021-06-24] MEDS ORDERED: BAMLANIVIMAB (EUA) 700 MG, ETESEVIMAB (EUA) 1,400 MG in SODIUM CHLORIDE 0.9% 50 ML IVPB ONE (14:00)
[2021-06-24 15:31] VITALS: RESP 20
== END 2021-06-24 15:47 | disposition home or self-care (01) ==
LOC: EC 12:20
DX: U07.1 COVID-19 (principal); E11.9 Type 2 diabetes mellitus without complications; E07.9 Disorder of thyroid, unspecified; E78.5 Hyperlipidemia, unspecified; I25.10 Atherosclerotic heart disease of native coronary artery without angina pectoris; Z91.09 Other allergy status, other than to drugs and biological substances; Z88.8 Allergy status to other drugs, medicaments and biological substances; Z79.82 Long term (current) use of aspirin; Z79.890 Hormone replacement therapy; Z79.899 Other long term (current) drug therapy; Z95.5 Presence of coronary angioplasty implant and graft
CPT/HCPCS: 87635; 99283; J3490

== ENCOUNTER → 2021-09-03 | Outpatient (CLI) | payer BC ==
[2021-09-03 16:22] LABS: Chol/HDL Ratio 3.01 Ratio; LDL Cholesterol,Calculated 53.1 mg/dL (0.0-131.0)
== END | disposition home or self-care (01) ==
LOC: LABWHC1 09:09
PROVIDERS: ATTEND Nurse Practitioner Adult Health
DX: E78.5 Hyperlipidemia, unspecified (principal)
CPT/HCPCS: 36415; 80061

== ENCOUNTER 2021-12-13 16:36 | Emergency (ER) | payer BC ==
[2021-12-13] MEDS ORDERED: ALBUTEROL NEBULIZED 2.5 MG/3 ML INHALATION STA (18:00)
[2021-12-13] MEDS ORDERED: ALBUTEROL HFA INHALER INHALATION STA (18:11)
[2021-12-13] MEDS ORDERED: BENZONATATE 100 MG CAP PO STA (18:29)
[2021-12-13] MEDS ORDERED: BEBTELOVIMAB (EUA) 175 MG/2 ML VIAL IV ONE (19:15)
--- NOTE | 2021-12-13 19:17 | US ---
EXAMINATION TYPE: US venous doppler duplex LE RT DATE OF EXAM: 12/13/2021 7:07 PM COMPARISON: NONE CLINICAL HISTORY: calf tenderness. SIDE PERFORMED: TECHNIQUE: The lower extremity deep venous system is examined utilizing real time linear array sonog shellie with graded compression, doppler sonography and color-flow sonography. VESSELS IMAGED: Common Femoral Vein Deep Femoral Vein Greater Saphenous Vein * Femoral Vein Popliteal Vein Small Saphenous Vein * Proximal Calf Veins (* superficial vessels) Right Leg: Left Leg: IMPRESSION: No evidence of deep vein thrombosis in both legs.
--- NOTE | 2021-12-13 20:05 | ED ---
General Adult HPI - General Chief complaint: Recheck/Abnormal Lab/Rx Stated complaint: Covid Positive,NASIR Time Seen by Provider: 12/13/21 17:42 Source: patient Mode of arrival: ambulatory Limitations: no limitations - History of Present Illness Initial comments: Patient is a 61-year-old female who presents with positive at home COVID-19 test today seeking antibody treatment. Patient states she woke up feeling sick today. She endorses fatigue, headache, runny nose, dry cough, and mild shortness of breath. No chest pain. Upon questioning patient does admit to right calf tenderness. She denies history of DVT per states her mother and sister have history of DVT. 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 No recent surgery or history of cancer. - Related Data Home Medications Medication Instructions Recorded Confirmed Furosemide [Lasix] 20 mg PO MOWEFR 07/20/14 06/24/21 Sertraline HCl 100 mg PO DAILY 07/20/14 06/24/21 Levothyroxine Sodium [Synthroid] 50 mcg PO AC-BRKFST 10/30/20 06/24/21 Metoprolol Succinate [Toprol XL] 25 mg PO DAILY 10/30/20 06/24/21 Aspirin EC [Ecotrin Low Dose] 81 mg PO HS 04/10/21 06/24/21 Atorvastatin [Lipitor] 80 mg PO HS 04/10/21 06/24/21 Losartan [Cozaar] 25 mg PO DAILY 04/10/21 06/24/21 Nitroglycerin Sl Tabs [Nitrostat] 0.4 mg SL Q5M PRN 04/10/21 06/24/21 Previous Rx's Medication Instructions Recorded Clopidogrel [Plavix] 75 mg PO DAILY 30 Days #30 tab 11/01/20 metFORMIN HCL [Glucophage] 2,000 mg PO HS #0 11/02/20 metFORMIN HCL [Glucophage] 500 mg PO DAILY #0 11/02/20 Benzonatate [Tessalon Perles] 100 mg PO TID PRN #15 capsule 12/13/21 Allergies Allergy/AdvReac Type Severity Reaction Status Date / Time adhesive Allergy Rash/Hives Verified 12/13/21 17:02 eggplant Allergy Rash/Hives Verified 12/13/21 17:02 moxifloxacin HCl AdvReac MEMORY LOSS Verified 12/13/21 17:02 [From Avelox] Review of Systems ROS Statement: Those systems with pertinent positive or pertinent negative responses have been documented in the HPI. ROS Other: All systems not noted in ROS Statement are negative. Past Medical History Past Medical History: Coronary Artery Disease (CAD), Diabetes Mellitus, Hyperlipidemia, Thyroid Disorder Additional Past Medical History / Comment(s): regular irregular HR History of Any Multi-Drug Resistant Organisms: None Reported Past Surgical History: Cardiac Ablation, Heart Catheterization With Stent, Orthopedic Surgery, Tonsillectomy Additional Past Surgical History / Comment(s): heart stents x3,d&c,lenny carpel tunnel Past Anesthesia/Blood Transfusion Reactions: No Reported Reaction Date of Last Stent Placement:: 2020 Past Psychological History: Depression Smoking Status: Never smoker Past Alcohol Use History: None Reported Past Drug Use History: None Reported - Past Family History Sister(s) Family Medical History: Cancer Additional Family Medical History / Comment(s): colon,breast Father Additional Family Medical History / Comment(s): heart problems Mother Family Medical History: Deep Vein Thrombosis (DVT) General Exam Limitations: no limitations General appearance: alert, in no apparent distress Head exam: Present: atraumatic, normocephalic, normal inspection ENT exam: Present: normal oropharynx Neck exam: Present: normal inspection, full ROM. Absent: tenderness, lymphadenopathy Respiratory exam: Present: normal lung sounds bilaterally. Absent: respiratory distress, wheezes, rales, rhonchi, stridor Cardiovascular Exam: Present: regular rate, normal rhythm, normal heart sounds. Absent: systolic murmur, diastolic murmur, rubs, gallop, clicks GI/Abdominal exam: Present: soft, normal bowel sounds. Absent: distended, tenderness, guarding, rebound, rigid Right Lower Leg exam: Present: normal inspection, full ROM, tenderness (calf). Absent: swelling, abrasion, laceration, ecchymosis, erythema, palpable cord, Homans' sign Ankle exam: Present: normal inspection, full ROM. Absent: tenderness Foot/Toe exam: Present: normal inspection, full ROM. Absent: tenderness Neurovascular tendon exam: Present: no vascular compromise. Absent: pulse deficit, pallor Course Vital Signs 12/13/21 16:59 Temperature 98.7 F Pulse Rate 66 Respiratory 18 Rate Blood Pressure 174/62 O2 Sat by Pulse 97 Oximetry Medical Decision Making - Medical Decision Making This is a 61-year-old female with upper respiratory symptoms and positive at- home COVID-19 test who seeks antibody treatment. Thorough history and examination were performed. Patient is well-appearing and in no apparent d istress. Patient does endorse mild shortness of breath. Lungs are clear to auscultation bilaterally. Pulse ox is 97% room air. COVID-19 is detected. Chest x-ray is negative for acute process. Patient meets criteria for monoclonal antibodies. Patient was given the antibodies in the emergency department and tolerated the treatment well. She was also given a breathing treatment and Tessalon Perles. Patient did have right calf tenderness with exam. Negative Homans sign. I obtained ultrasound of the right lower extremity for rule out DVT which is negative. Patient will be discharged with instruction to quarantine for 5 days. Patient states she does not like inhalers and declines albuterol inhaler prescription. I'll send her home with Tessalon Perles. Return parameters discussed. Patient verbalizes understanding and is agreeable to this plan, Dr. Salazar is my attending. - Lab Data Lab Results 12/13/21 Range/Units 18:13 Coronavirus (PCR) Detected A (Not Detectd) Disposition Clinical Impression: COVID-19 Disposition: HOME SELF-CARE Condition: Good Instructions (If sedation given, give patient instructions): Coronavirus Disease 2019 (COVID-19) Additional Instructions: Please take medication as directed. Take Tylenol as needed for fever and headache. Quarantine at home for 5 days. Follow-up with your primary care provider in one to 2 days. Return to the emergency department if you experience new, concerning, or worsening symptoms. Prescriptions: Benzonatate [Tessalon Perles] 100 mg PO TID PRN #15 capsule PRN Reason: cough Is patient prescribed a controlled substance at d/c from ED?: No Referrals: Puma Ruiz MD [Primary Care Provider] - 1-2 days Time of Disposition: 20:05
--- NOTE | 2021-12-13 20:14 | XR ---
EXAMINATION TYPE: XR chest 2V DATE OF EXAM: 12/13/2021 COMPARISON: 04/10/2021 HISTORY: Short of breath TECHNIQUE: FINDINGS: Heart is normal. Lungs are clear of infiltrate. No heart failure. There are no hilar masses . Bony thorax is intact. IMPRESSION: Normal chest. No change.
[2021-12-14 03:26] VITALS: BP 168/59; PULSE 67; RESP 17; TEMP 98.5
== END 2021-12-13 21:06 | disposition home or self-care (01) ==
LOC: EC 16:36
DX: U07.1 COVID-19 (principal); I25.10 Atherosclerotic heart disease of native coronary artery without angina pectoris; E07.9 Disorder of thyroid, unspecified; Z79.1 Long term (current) use of non-steroidal anti-inflammatories (NSAID); Z91.048 Other nonmedicinal substance allergy status; Z91.018 Allergy to other foods; Z88.1 Allergy status to other antibiotic agents
CPT/HCPCS: 99284; 94640; 87635; 71046; 93971; Q0222

== ENCOUNTER → 2022-05-08 | Outpatient (CLI) | payer BC ==
--- NOTE | 2022-05-08 14:18 | US ---
EXAMINATION TYPE: US carotid duplex BILAT DATE OF EXAM: 05/08/2022 COMPARISON: NONE CLINICAL HISTORY: I65.23 OCCLUSION AND STENOSIS. TECHNIQUE: Carotid duplex ultrasound examination. Indirect Doppler criteria was utilized. FINDINGS: EXAM MEASUREMENTS: RIGHT: Peak Systolic Velocity (PSV) cm/sec ----- Right CCA: 50.1 ----- Right ICA: 72.0 ----- Right ECA: 73.2 ICA/CCA ratio: 1.4 RIGHT: End Diastole cm/sec ----- Right CCA: 7.2 ----- Right ICA: 23.0 ----- Right ECA: 1.2 LEFT: Peak Systolic Velocity (PSV) cm/sec ----- Left CCA: 53.6 ----- Left ICA: 65.0 ----- Left ECA: 70.2 ICA/CCA ratio: 1.2 LEFT: End Diastole cm/sec ----- Left CCA: 7.9 ----- Left ICA: 22.4 ----- Left ECA: 0.0 VERTEBRALS (direction of flow): Right Vertebral: Antegrade Left Vertebral: Antegrade Rhythm: Normal [employer] INTERN NOTES: No significant stenosis visualized. Some intimal wall thickening may be present. No large plaques are identified. IMPRESSION: 1. Mild intimal thickening without significant flow-limiting stenosis. Criteria for Assigning % of Stenosis / Diameter reduction (Estimation based on the indirect measurements of the internal carotid artery velocities (ICA PSV). 1. Normal (no stenosis)=ICA PSV < 125 cm/s: ratio < 2.0: ICA EDV<40 cm/s. 2. Less than 50% stenosis=ICA PSV < 125 cm/s: ratio < 2.0: ICA EDV<40 cm/s. 3. 50 to 69% stenosis=ICA PSV of 125 to 230 cm/s: ration 2.0 ? 4.0: ICA EDV 40-100 cm/s. 4. Greater than 70% stenosis to near occlusion= ICA PSV > 230 cm/s: ratio > 4.0: ICA EDV > 100 cm/s. 5. Near occlusion= ICA PSV velocities may be low or undetectable: variable ratio and ICA EDV. 6. Total occlusion=unable to detect flow.
== END | disposition home or self-care (01) ==
LOC: RADUSWWP 13:22
PROVIDERS: ATTEND Internal Medicine
DX: Z12.31 Encounter for screening mammogram for malignant neoplasm of breast (principal); I65.23 Occlusion and stenosis of bilateral carotid arteries; I25.10 Atherosclerotic heart disease of native coronary artery without angina pectoris; M85.851 Other specified disorders of bone density and structure, right thigh
CPT/HCPCS: 93880

== ENCOUNTER → 2022-05-21 | Outpatient (CLI) | payer BC ==
--- NOTE | 2022-05-21 08:18 | BD ---
EXAMINATION TYPE: Axial Bone Density DATE OF EXAM: 05/21/2022 COMPARISON: 07.31.2014 CLINICAL HISTORY: 62 years year old Female. ICD-10 CODE: M85.851 OT DISRD OF BONE DENSITY Height: 68 Weight: 268 FRAX RISK QUESTIONS: Family History (Parent hip fracture): SPINAL FX, YES Secondary Osteoporosis: YES 1. Type 1 Diabetes: YES RISK FACTORS HISTORY OF: Family History of Osteoporosis: YES, HIP, WITH SPINE FX Postmenopausal woman: 52 Hyperparathyroidism: NO Adrenal Insufficiency: NO MEDICATIONS: Thyroid Medications: YES, THYROID, SYNTHROID 3 YRS Additional Medications: BP MEDS, ZOLOFT, REFLUX MEDS, STATIN FOR CHOLESTEROL, METFORMIN, AND INSULIN , CALCIUM Additional History: HYPERTENSION, HEART CONDITION, CHOLESTEROL, REFLUX, ANXIETY DIABETES, THYROID, BA CK AND HIP PAIN EXAM MEASUREMENTS: Bone mineral densitometry was performed using the [employer] System. Bone mineral density as measured about the Lumbar spine is: ----- L1-L4(G/cm2): 1.441 T Score Values are as follows: ----- L1: 0.8 ----- L2: 1.6 ----- L3: 3.1 ----- L4: 2.7 ----- L1-L4: 2.2 Bone mineral density has: Decreased -2.2% since study of: 07.31.2014 Bone mineral density about the R hip (g/cm2): 1.260 Bone mineral density about the L hip (g/cm2): 1.332 T Score values are as follows: -----R Neck: 0.6 -----L Neck: 0.8 -----R Total: 2.0 -----L Total: 2.6 Bone mineral density has: Decreased -3.8% since study of: 07.31.2014 FRAX%s: The graph provided illustrates a 5.2% chance for a major osteoporotic fx and a 0.1% chance fo r the hips probability for fx in 10 years time. IMPRESSION: Normal (Values between +1 and -1 indicate normal bone mass). Consider repeating this study in 5 year s or sooner if there is some new clinical indication. NOTE: T-SCORE=SD OF THE YOUNG ADULT MEAN.
--- NOTE | 2022-05-21 08:55 | MM ---
Reason for Exam: Screening (asymptomatic). Last mammogram was performed 4 year(s) and 2 month(s) ago. Patient History: Menarche at age 14. First Full-Term at age 35. Late child-bearing (after 30). Postmenopausal. 02/20/2000, Benign Stereotactic Core Biopsy on the left side. Sister had breast cancer. Risk Values: Jeane 5 year model risk: 3.3%. NCI Lifetime model risk: 14.5%. Prior Study Comparison: 07/31/2014 Bilateral Screening Mammogram, [facility]. 08/08/2014 Right Diagnostic Mammogram, [facility]. 04/01/2018 Bilateral Screening Mammogram, [facility]. Tissue Density: There are scattered fibroglandular densities. Findings: Analyzed By CAD. There is no suspicious group of microcalcifications or new suspicious mass in either breast. Benign calcifications demonstrated within both breasts. Biopsy clip in the left breast. Overall Assessment: Benign, BI-RAD 2 Management: Screening Mammogram of both breasts in 1 year. A clinical breast exam by your physician is recommended on an annual basis and results should be correlated with mammographic findings. Electronically signed and approved by: hCele Kunz D.O.
== END | disposition home or self-care (01) ==
LOC: RADMAMWWP 06:50
PROVIDERS: ATTEND Internal Medicine
DX: Z12.31 Encounter for screening mammogram for malignant neoplasm of breast (principal); I25.10 Atherosclerotic heart disease of native coronary artery without angina pectoris; M85.851 Other specified disorders of bone density and structure, right thigh; I65.23 Occlusion and stenosis of bilateral carotid arteries
CPT/HCPCS: 77063; 77067; 77080

== ENCOUNTER → 2022-06-02 | Outpatient (CLI) | payer BC ==
[~2022-06-02] MED LIST changes: -LACTATED RINGERS 1,000 ML IV SCH; -LIDOCAINE 1% 20 ML VIAL (10MG/ML) FOR IV START INTRADERMA PRN; +REGADENOSON 0.4 MG/5 ML SYRINGE IV ONE
--- NOTE | 2022-06-02 11:59 | CA ---
Lexiscan Nuclear Stress Test Report Name: Tanya Flor Exam Date: 06/02/2022 09:52 Exam Location: [place] Stress Ht (in): 68 Wt (lb): 270 BSA: 2.32 Ordering Phys: Puma Ruiz MD Referring Phys: SONALI, Technologist: Rodrigo Ram Age: 62 Gender: F : 1960 Procedure CPT: Indications: I25.10 CAD ICD-10 Codes: Patient History: Medications: Meds past 24 hrs: Pretest Chest Pain: STRESS TEST Lexiscan Protocol Exercise Duration (min:sec): 01:[address] Depressions (mm): Angina Score: Lopez Score: Resting HR (bpm): 54 Peak HR (bpm): 77 Resting BP (mmHg): 142 / 76 Peak BP (mmHg): 152 / 69 MPHR: 158 Target HR: 134 % MPHR: 49 METS: 1.0 Total Dose: Peak Dose: Atropine: Double Product: 32882 BP Response: Stress Termination: INFUSION COMPLETE Stress Symptoms: DIFFICULTY IN BREATHING Stress Summary: ECG ANALYSIS Resting ECG: Normal sinus rhythm with evidence of prior anteroseptal myocardial infarction Stress ECG: Negative stress test by EKG criteria CONCLUSIONS Negative stress test by EKG criteria Cardiolite portion of the stress test will be reported separately Dr. Nicolas Gibson MD (Electronically Signed) Final Date: 02 June 2022 11:58
--- NOTE | 2022-06-02 15:21 | NM ---
EXAMINATION TYPE: NM stress lexiscan cardiolite DATE OF EXAM: 06/02/2022 COMPARISON: NONE HISTORY: Coronary artery disease TECHNIQUE: After the intravenous administration of 10.0 mCi Tc 99m Sestamibi - Cardiolite resting SP ECT images acquired 45 minutes post injection. At peak stress 26.4 mCi Tc 99m Sestamibi - Stress images obtained 45 minutes post injection The patient was stressed with 0.4mg Lexiscan. FINDINGS: Appears to be some mild diminished radiotracer accumulation along the mid to distal anterior wall on the stress images. This has improved radiotracer on resting images. Some mild stress-induced ischemic change along the distal anterior wall is not excluded but is not as well-visualized on the polar map s. Some mild hypokinesia of the distal anterior wall is present. Ejection fraction is calculated to be 50%. IMPRESSION: 1. Some mild stress-induced ischemic change may be along the mid to distal anterior wall. Correlate w ith EKG changes. 2. Borderline ejection fraction 50%. Some mild dyskinesia of the distal anterior wall may be present.
== END | disposition home or self-care (01) ==
LOC: RADNMMAIN 08:18
PROVIDERS: ATTEND Internal Medicine
DX: I25.10 Atherosclerotic heart disease of native coronary artery without angina pectoris (principal)
CPT/HCPCS: 93017; 78452; A9500

== ENCOUNTER 2022-06-30 05:45 | Day surgery (SDC) | payer BC ==
[2022-06-30] MEDS ORDERED: ALPRAZolam 0.5 MG TAB PO PRN (05:59)
[2022-06-30] MEDS ORDERED: ALPRAZolam 0.25 MG TAB PO PRN (05:59)
[2022-06-30] MEDS ORDERED: ATORVASTATIN 80 MG TAB PO STA (05:59)
[2022-06-30] MEDS ORDERED: ASPIRIN 325 MG TAB PO STA (05:59)
[2022-06-30] MEDS ORDERED: NITROGLYCERIN SL TABS 0.4 MG TAB SUBLINGUAL PRN (05:59)
[2022-06-30] MEDS: SODIUM CHLORIDE 0.9% 1,000 ML in EMPTY BAG 1 BAG IV SCH ×3 (06:12→21:40)
[2022-06-30 06:22] LABS: Glucose,Whole Blood 134 mg/dL (70-110)
[2022-06-30 06:35] LABS: Basophils # (A) 0.1 k/uL (0-0.2); Basophils % (A) 1 %; Eosinophils # (A) 0.7 k/uL (0-0.7); Eosinophils % (A) 8 %; HCT 36.5 % (34.0-46.0); HGB 13.1 gm/dL (11.4-16.0); Lymphocytes # (A) 1.6 k/uL (1.0-4.8); Lymphocytes % (A) 19 %; MCH 31.2 pg (25.0-35.0); MCHC 35.9 g/dL (31.0-37.0); Mean Platelet Volume 8.4; Monocytes # (A) 0.4 k/uL (0-1.0); Monocytes % (A) 5 %; Neutrophils % (A) 68 %; Platelet Count 226 k/uL (150-450); RBC 4.19 m/uL (3.80-5.40); RDW 13.3 % (11.5-15.5); WBC 8.8 k/uL (3.8-10.6)
[2022-06-30 07:00] LABS: African American GFR (CKD) >90 (>60 ml/min/1.73 sqM); Anion Gap 10 mmol/L; Blood Urea Nitrogen 15 mg/dL (7-17); Calcium 8.7 mg/dL (8.4-10.2); Carbon Dioxide 24 mmol/L (22-30); Chloride 103 mmol/L (98-107); Glucose 136 mg/dL (74-99); Non-African American GFR(CKD) >90 (>60 ml/min/1.73 sqM); Sodium 137 mmol/L (137-145)
[2022-06-30 07:10] LABS: Potassium 4.6 mmol/L (3.5-5.1)
[2022-06-30] MEDS ORDERED: HEPARIN SODIUM 1,000 UN/ML (10ML VL) ONE (07:29)
[2022-06-30] MEDS ORDERED: MIDAZOLAM 2 MG/2 ML VIAL IV ONE (07:41)
[2022-06-30] MEDS ORDERED: LIDOCAINE 1% INJ 10MG/ML (5 ML VIAL-PF) SQ ONE (07:43)
[2022-06-30] MEDS ORDERED: VERAPAMIL SYRINGE (5 MG/10 ML) INTRAARTER ONE (07:45)
[2022-06-30] MEDS: HEPARIN SODIUM 1,000 UN/ML (10ML VL) IV ONE ×2 (07:47→07:55)
[2022-06-30] MEDS ORDERED: fentaNYL (PF) 50 MCG/ML 2 ML AMP ONE (08:11)
[2022-06-30] MEDS: MIDAZOLAM 2 MG/2 ML VIAL IV ONE ×2 (08:12→08:24)
[2022-06-30] MEDS ORDERED: fentaNYL (PF) 50 MCG/ML 2 ML AMP IV ONE (08:12)
[2022-06-30] MEDS ORDERED: niCARdipine 25 MG/10 ML VIAL ONE (08:29)
[2022-06-30] MEDS ORDERED: NITROGLYCERIN 1000MCG/10ML SYRINGE INTRACORON ONE (08:32)
[2022-06-30] MEDS ORDERED: IOPAMIDOL-370 125ML BTL INJ ONE (08:33)
[2022-06-30] MEDS ORDERED: CLOPIDOGREL 75 MG TAB ONE (08:34)
[2022-06-30] MEDS ORDERED: CLOPIDOGREL 75 MG TAB PO ONE (08:36)
[2022-06-30] MEDS ORDERED: BENZONATATE 100 MG CAP PO PRN (08:38)
[2022-06-30] MEDS ORDERED: NALOXONE 0.4 MG/ML 1 ML VIAL IVP PRN (08:39)
[2022-06-30] MEDS ORDERED: SODIUM CHLORIDE 0.9% 1,000 ML in EMPTY BAG 1 BAG IV SCH (08:45)
--- NOTE | 2022-06-30 08:46 | P.PCN ---
Date of Procedure: 06/30/22 Operative Findings: CARDIAC CATHETERIZATION AND PERCUTANEOUS CORONARY INTERVENTION PERFORMING PHYSICIAN: Paco Otero MD, [facility] PROCEDURE PERFORMED: 1. Selective right and left coronary angiogram 2. Intravascular ultrasound of the right coronary artery 3. Successful balloon angioplasty of the right coronary artery. INDICATION: This is a 62-year-old female patient who sees Dr. Tam regularly with a past medical history significant for coronary artery disease and prior stenting of the RCA 3 times in the past as well as hypertension and dyslipidemia and diabetes was seen in the office recently for evaluation of chest discomfort. Stress test was performed and came in to be abnormal showing reversibility/ischemia anteriorly. In the light of that a heart catheterization was advised COMPLICATION: None APPROACH: Right radial artery LEVEL OF SEDATION: Moderate with the sedation time off 52 minutes PROCEDURE DESCRIPTION: After obtaining an informed consent the patient was brought to the cardiac factory laborer. The right radial artery was cannulated using micropuncture technique, the micropuncture wire passed easily then I placed 6-Belarusian sheath in the right radial artery I gave the patient 2 mg of verapamil intra-arterial and a total of 10,000 use of heparin intravenous. Selective right and left coronary angiogram performed using JR4 and JL 3.5 catheters. Then I did intervene on the right coronary artery. The procedure was completed without any complication SELECTIVE CORONARY ANGIOGRAM: The right coronary artery: Large caliber vessel and a dominant vessel. The RCA is occluded in the midportion with in-stent occlusion. Left main: A large caliber vessel. Its angiographically normal. Bifurcates to an LCx and LAD The left circumflex: Large caliber vessel and nondominant dominant vessel. The LCx has mild disease only. Gives rises into OM1 and OM 2 both appeared to be angiographically normal. The left anterior descending artery: Large caliber vessel. The proximal LAD appeared to be angiographically normal. The mid LAD after the bifurcation of a large diagonal branch has intermediate to severe lesion appeared to be in the range of 60%. The LAD distally appears to have mild disease only. PCI OF THE the RCA: Anticoagulation was initiated using heparin with continuous ACT monitoring. I did engage the RCA using a.l. 0.75 guiding catheter. I was able to wire the right coronary artery using a whisper wire. Balloon angioplasty was performed initially using 1 mm balloon was subsequently 2 mm balloon and subsequently 3 mm balloon. Intravascular ultrasound was also performed and showed a diameter of the right coronary artery of at least 3 mm was multiple layers of stent. With balloon angioplasty only and was able to achieve MINNIE-3 flow with good results. I decided to stop with the ovoid in of adding another layer of stent. CONCLUSION: Occluded right coronary artery which is in-stent occlusion with multiple layers of stents. I did perform successful balloon angioplasty with no stenting with adjunctive use of and O ultrasound Intermediate lesion involving the mid left anterior descending artery. POSTPROCEDURE MANAGEMENT: #1 dual antiplatelet therapy with aspirin and Plavix for at least 6 months #2 FFR of the left anterior descending artery #3 follow-up with the patient
[2022-06-30 17:10] LABS: Glucose,Whole Blood 147 mg/dL (70-110)
[2022-06-30] MEDS: INSULIN ASPART (NovoLOG) 100 UNIT/ML VIAL SQ SCH ×2 (17:20→21:38)
[2022-06-30 20:11] LABS: Glucose,Whole Blood 197 mg/dL (70-110)
[2022-06-30] MEDS ORDERED: EZETIMIBE 10 MG TAB PO SCH (21:00)
[2022-06-30] MEDS ORDERED: ATORVASTATIN 80 MG TAB PO SCH (21:00)
[2022-06-30] MEDS ORDERED: ASPIRIN 81 MG PO SCH (21:00)
[2022-07-01 05:58] LABS: Glucose,Whole Blood 140 mg/dL (70-110)
[2022-07-01] MEDS: SODIUM CHLORIDE 0.9% 1,000 ML in EMPTY BAG 1 BAG IV SCH (06:13)
[2022-07-01] MEDS: INSULIN ASPART (NovoLOG) 100 UNIT/ML VIAL SQ SCH (06:14)
[2022-07-01] MEDS ORDERED: LEVOTHYROXINE 50 MCG TAB PO SCH (07:30)
[2022-07-01 08:27] VITALS: BP 133/78; PULSE 58; RESP 18; TEMP 97.6
[2022-07-01] MEDS ORDERED: SERTRALINE 100 MG TAB PO SCH (09:00)
[2022-07-01] MEDS ORDERED: CLOPIDOGREL 75 MG TAB PO SCH (09:00)
[2022-07-01] MEDS ORDERED: FUROSEMIDE 20 MG TAB PO SCH (09:00)
[2022-07-01] MEDS ORDERED: VALSARTAN 40 MG TAB PO SCH (09:00)
[2022-07-01] MEDS ORDERED: METOPROLOL SUCCINATE (ER) 25 MG TAB.ER.24H PO SCH (09:00)
--- NOTE | 2022-07-01 10:46 | P.DS ---
Providers Attending physician: Paco Otero [facility] Course: The patient is a pleasant 62-year-old female patient who sees Dr. Tam regularly was known coronary artery disease and prior stenting of the RCA was seen in the office assembly for further evaluation of chest discomfort and shortness of breath. She underwent yesterday heart catheterization and was found to have occluded RCA and severe disease involving the mid left anterior descending artery which she underwent successful stenting of the RCA with a good angiographic results and without any complication. She was seen this morning bid the right radial site is soft and nontender with a good pulse. She is asymptomatic. She is heme with dynamic be stable. She is going to be discharged home on dual antiplatelet therapy and high intensity statin to see Dr. Tam in the office and she will be scheduled to undergo PCI of the LAD in the next few days. The patient was advised to be taking her medications including dual antiplatelet therapy. Plan - Discharge Summary Discharge Rx Participant: No New Discharge Prescriptions: Continue Furosemide [Lasix] 20 mg PO MOWEFR Sertraline HCl 100 mg PO DAILY Aspirin EC [Ecotrin Low Dose] 81 mg PO HS Ezetimibe [Zetia] 10 mg PO HS Tirzepatide [Mounjaro] 5 mg SQ LEYVA Metoprolol Succinate [Toprol XL] 25 mg PO DAILY Levothyroxine Sodium [Synthroid] 50 mcg PO AC-BRKFST Clopidogrel [Plavix] 75 mg PO DAILY 30 Days #30 tab Atorvastatin [Lipitor] 80 mg PO HS Nitroglycerin Sl Tabs [Nitrostat] 0.4 mg SL Q5M PRN PRN Reason: Chest Pain Benzonatate [Tessalon Perles] 100 mg PO TID PRN #15 capsule PRN Reason: cough Valsartan 40 mg PO DAILY Discontinued metFORMIN HCL [Glucophage] 500 mg PO DAILY #0 metFORMIN HCL [Glucophage] 2,000 mg PO HS #0 Discharge Medication List Furosemide [Lasix] 20 mg PO MOWEFR 07/20/14 [History] Sertraline HCl 100 mg PO DAILY 07/20/14 [History] Levothyroxine Sodium [Synthroid] 50 mcg PO AC-BRKFST 10/30/20 [History] Metoprolol Succinate [Toprol XL] 25 mg PO DAILY 10/30/20 [History] Clopidogrel [Plavix] 75 mg PO DAILY 30 Days #30 tab 11/01/20 [Rx] Aspirin EC [Ecotrin Low Dose] 81 mg PO HS 04/10/21 [History] Atorvastatin [Lipitor] 80 mg PO HS 04/10/21 [History] Nitroglycerin Sl Tabs [Nitrostat] 0.4 mg SL Q5M PRN 04/10/21 [History] Benzonatate [Tessalon Perles] 100 mg PO TID PRN #15 capsule 12/13/21 [Rx] Ezetimibe [Zetia] 10 mg PO HS 06/29/22 [History] Tirzepatide [Mounjaro] 5 mg SQ LEYVA 06/29/22 [History] Valsartan 40 mg PO DAILY 06/29/22 [History] Follow up Appointment(s)/Referral(s): Giuliano Tam MD [STAFF PHYSICIAN] - 07/09/22 10:45 am (Your recheck appt. will be with GHANSHYAM Alaniz) Patient Instructions/Handouts: Moderate Sedation (DC), Coronary Angioplasty (DC), After Radial Heart Catheterization (GEN) Activity/Diet/Wound Care/Special Instructions: No lifting/pushing/pulling greater than 5 lbs for 5 days with right arm. Remove dressing tomorrow (about noon). No need to re-dress. You may shower tomorrow after dressing removal. No soaking of puncture site for 3 days (such as swim or tub). You may drive . HOLD Metformin for 48 hrs. Important to continue to take Plavix daily. Discharge Disposition: HOME SELF-CARE
[2022-07-05] MEDS ORDERED: NON FORMULARY DRUG (Tirzepatide [Mounjaro] 5 MG/0.5 ML Pen.Injctr) SQ SCH (08:38)
== END 2022-07-01 09:10 | disposition home or self-care (01) ==
LOC: CATHCVL 05:45 → 6NMEDSUR 08:35 → CATHCVL 07-01 09:10
PROVIDERS: ATTEND Internal Medicine Interventional Cardiology
DX: I25.10 Atherosclerotic heart disease of native coronary artery without angina pectoris (principal); R94.39 Abnormal result of other cardiovascular function study; E11.9 Type 2 diabetes mellitus without complications; E78.5 Hyperlipidemia, unspecified; I10 Essential (primary) hypertension; Z79.02 Long term (current) use of antithrombotics/antiplatelets; Z79.84 Long term (current) use of oral hypoglycemic drugs; Z95.5 Presence of coronary angioplasty implant and graft
CPT/HCPCS: 92978; 93454; 92920; 80048; 85025; C1769 ×2; C1887 ×2; C1894; C1725 ×3; C1753; J2250; J2001; J3010; J1644; Q9967

== ENCOUNTER 2022-07-10 09:42 | Day surgery (SDC) | payer BC ==
[~2022-07-10 09:42] MED LIST changes: +ALPRAZolam 0.25 MG TAB PO PRN; +ALPRAZolam 0.5 MG TAB PO PRN; +ASPIRIN 325 MG TAB PO STA; +ATORVASTATIN 80 MG TAB PO STA; +HEPARIN SODIUM,PORCINE 10,000 UNIT in SODIUM CHLORIDE 0.9% 1,000 ML IRRIGATION PRN; +HEPARIN SODIUM,PORCINE 2,500 UNIT in SODIUM CHLORIDE 0.9% 250 ML IRRIGATION PRN; +NITROGLYCERIN SL TABS 0.4 MG TAB SUBLINGUAL PRN; -REGADENOSON 0.4 MG/5 ML SYRINGE IV ONE
[2022-07-10] MEDS: SODIUM CHLORIDE 0.9% 1,000 ML in EMPTY BAG 1 BAG IV SCH ×2 (10:20→22:07)
[2022-07-10 10:32] LABS: Glucose,Whole Blood 130 mg/dL (70-110)
[2022-07-10 10:36] LABS: Basophils # (A) 0.1 k/uL (0-0.2); Basophils % (A) 1 %; Eosinophils # (A) 0.7 k/uL (0-0.7); Eosinophils % (A) 8 %; HCT 36.1 % (34.0-46.0); HGB 13.3 gm/dL (11.4-16.0); Hyperchromasia Slight; Lymphocytes # (A) 1.4 k/uL (1.0-4.8); Lymphocytes % (A) 17 %; MCH 31.6 pg (25.0-35.0); MCV 85.5 fL (80.0-100.0); Mean Platelet Volume 8.3; Monocytes # (A) 0.4 k/uL (0-1.0); Monocytes % (A) 5 %; Neutrophils # (A) 5.3 k/uL (1.3-7.7); Neutrophils % (A) 68 %; Platelet Count 221 k/uL (150-450); RBC 4.22 m/uL (3.80-5.40); RDW 13.4 % (11.5-15.5); WBC 7.8 k/uL (3.8-10.6)
[2022-07-10 10:50] LABS: African American GFR (CKD) >90 (>60 ml/min/1.73 sqM); Anion Gap 9 mmol/L; Blood Urea Nitrogen 23 mg/dL (7-17); Carbon Dioxide 26 mmol/L (22-30); Chloride 102 mmol/L (98-107); Glucose 133 mg/dL (74-99); Non-African American GFR(CKD) 82 (>60 ml/min/1.73 sqM); Sodium 137 mmol/L (137-145)
[2022-07-10 10:58] LABS: Potassium 4.9 mmol/L (3.5-5.1)
[2022-07-10] MEDS ORDERED: VERAPAMIL 2.5 MG/ML 2 ML AMP ONE (19:00)
[2022-07-10] MEDS ORDERED: HEPARIN SODIUM 1,000 UN/ML (10ML VL) ONE (19:00)
[2022-07-10] MEDS ORDERED: MIDAZOLAM 2 MG/2 ML VIAL IV ONE (19:05)
[2022-07-10] MEDS ORDERED: LIDOCAINE 1% INJ 10MG/ML (5 ML VIAL-PF) SQ ONE (19:09)
[2022-07-10] MEDS: VERAPAMIL SYRINGE (5 MG/10 ML) INTRAARTER ONE ×2 (19:10→19:34)
[2022-07-10] MEDS ORDERED: HEPARIN SODIUM 1,000 UN/ML (10ML VL) IV ONE (19:11)
[2022-07-10] MEDS: NITROGLYCERIN 1000MCG/10ML SYRINGE INTRACORON ONE ×2 (19:23→19:32)
[2022-07-10] MEDS ORDERED: IOPAMIDOL-370 100ML BTL INJ ONE (19:30)
[2022-07-10] MEDS ORDERED: CLOPIDOGREL 75 MG TAB PO ONE (19:33)
[2022-07-10] MEDS ORDERED: CLOPIDOGREL 75 MG TAB ONE (19:33)
[2022-07-10] MEDS ORDERED: IOPAMIDOL-370 50ML BTL INJ ONE (19:33)
[2022-07-10] MEDS ORDERED: BENZONATATE 100 MG CAP PO PRN (19:36)
[2022-07-10] MEDS ORDERED: NITROGLYCERIN SL TABS 0.4 MG TAB SUBLINGUAL PRN (19:37)
[2022-07-10] MEDS ORDERED: MAG HYDROX/AL HYDROX/SIMETH 30 ML CUP PO PRN (19:37)
[2022-07-10] MEDS ORDERED: ATROPINE SULFATE 0.1 MG/ML 10ML SYRINGE IV PRN (19:37)
[2022-07-10] MEDS ORDERED: RX INFO: IV CONTRAST WAS GIVEN 1 EACH MISC MISCELLANE PRN (19:37)
[2022-07-10] MEDS ORDERED: ZOLPIDEM 5 MG TAB PO PRN (19:37)
--- NOTE | 2022-07-10 19:41 | P.PCN ---
Date of Procedure: 07/10/22 Operative Findings: PERCUTANEOUS CORONARY INTERVENTION Performing physician Paco Otero M.D. Procedure Performed: 1. Successful stenting of the mid LAD using 0.75 x 15 mm Xience drug-eluting stent with an excellent angiographic results. Indication: This is a 62-year-old female patient who sees Dr. Tam regularly was experiencing symptoms of chest discomfort and she underwent recently heart catheterization and that revealed occluded RCA which was opened. She also was found to have severe disease involving the LAD. She was brought today for intervention on the LAD Approach: Right radial artery Complications: None Level of Sedation: Moderate with a sedation length of 27 minutes Procedure Discussion: After obtaining an informed consent the patient was brought to the cardiac cytogenetics laboratory manager. The right radial artery was cannulated using micropuncture technique, and a culture wire passed easily then I placed a 6-Tanzanian sheath. I did give the patient 2 mg of verapamil intra-arterial and 6000 units of heparin intravenous. I did engage the left main using JL 3.5 guiding catheter. I did wire the LAD using a run-through wire. After that I did balloon angioplasty using 2.5 x 12 mm balloon. Subsequently I deployed 2.75 x 15 mm stent where the stent was positioned under. He guidance and deployed under its nominal pressure. The final angiogram showed that the stented segment was not well opposed. I post started that segment using 2.75 noncompliant balloon which was inflated under 20 concepción for 20 seconds. The final angiogram showed excellent angiographic results and the procedure was completed without any complication was MINNIE-3 flow in the LAD Postprocedure Management: 1. Dual antiplatelet therapy for at least 6 months using aspirin and Plavix 2. Aggressive cholesterol control 3. Risk factors modification
[2022-07-10] MEDS ORDERED: SODIUM CHLORIDE 0.9% 1,000 ML in EMPTY BAG 1 BAG IV SCH (19:45)
[2022-07-10] MEDS ORDERED: EZETIMIBE 10 MG TAB PO SCH (21:00)
[2022-07-10] MEDS ORDERED: ASPIRIN 81 MG PO SCH (21:00)
[2022-07-10] MEDS ORDERED: ATORVASTATIN 80 MG TAB PO SCH (21:00)
[2022-07-10] MEDS: RANOLAZINE 500 MG TAB.ER.12H PO SCH (22:10)
[2022-07-11] MEDS: SODIUM CHLORIDE 0.9% 1,000 ML in EMPTY BAG 1 BAG IV SCH ×2 (02:45→08:09)
--- NOTE | 2022-07-11 06:38 | P.DS ---
Providers Attending physician: Paco Otero Consults: 07/10/22 19:37 Consult Physician Routine Consulting Provider: [facility] Consult Reason/Comments: Post Interventional Patient Do you want consulting provider notified?: Already Contacted Primary care physician: Puma Ruiz [facility] Course: The patient is a pleasant 62-year-old female patient who sees Dr. Tam regularly who was admitted to the hospital yesterday and underwent successful stenting of the LAD in the midportion with a good angiographic results and without any complications from right radial approach. The patient was seen and evaluated this morning. She is asymptomatic. She is hemodynamically stable. She is going to be discharged home on dual antiplatelet therapy and follow-up with Dr. Tam in a week in the office. Plan - Discharge Summary Discharge Rx Participant: No New Discharge Prescriptions: No Action Furosemide [Lasix] 20 mg PO MOWEFR Sertraline HCl 100 mg PO DAILY Aspirin EC [Ecotrin Low Dose] 81 mg PO HS Ezetimibe [Zetia] 10 mg PO HS Tirzepatide [Mounjaro] 5 mg SQ LEYVA metFORMIN HCL 500 mg PO DAILY metFORMIN HCL 1,000 mg PO PC-SUPPER Ranolazine [Ranolazine ER] 1 tab PO BID Isosorbide Mononitrate [Isosorbide Mononitrate ER] 30 mg PO DAILY Metoprolol Succinate [Toprol XL] 25 mg PO DAILY Levothyroxine Sodium [Synthroid] 50 mcg PO AC-BRKFST Clopidogrel [Plavix] 75 mg PO DAILY 30 Days #30 tab Atorvastatin [Lipitor] 80 mg PO HS Nitroglycerin Sl Tabs [Nitrostat] 0.4 mg SL Q5M PRN PRN Reason: Chest Pain Benzonatate [Tessalon Perles] 100 mg PO TID PRN #15 capsule PRN Reason: cough Valsartan 40 mg PO DAILY Discharge Medication List Furosemide [Lasix] 20 mg PO MOWEFR 07/20/14 [History] Sertraline HCl 100 mg PO DAILY 07/20/14 [History] Levothyroxine Sodium [Synthroid] 50 mcg PO AC-BRKFST 10/30/20 [History] Metoprolol Succinate [Toprol XL] 25 mg PO DAILY 10/30/20 [History] Clopidogrel [Plavix] 75 mg PO DAILY 30 Days #30 tab 11/01/20 [Rx] Aspirin EC [Ecotrin Low Dose] 81 mg PO HS 04/10/21 [History] Atorvastatin [Lipitor] 80 mg PO HS 04/10/21 [History] Nitroglycerin Sl Tabs [Nitrostat] 0.4 mg SL Q5M PRN 04/10/21 [History] Benzonatate [Tessalon Perles] 100 mg PO TID PRN #15 capsule 12/13/21 [Rx] Ezetimibe [Zetia] 10 mg PO HS 06/29/22 [History] Tirzepatide [Mounjaro] 5 mg SQ LEYVA 06/29/22 [History] Valsartan 40 mg PO DAILY 06/29/22 [History] Isosorbide Mononitrate [Isosorbide Mononitrate ER] 30 mg PO DAILY 07/09/22 [History] Ranolazine [Ranolazine ER] 1 tab PO BID 07/09/22 [History] metFORMIN HCL 1,000 mg PO PC-SUPPER 07/09/22 [History] metFORMIN HCL 500 mg PO DAILY 07/09/22 [History] Follow up Appointment(s)/Referral(s): Giuliano Tam MD [STAFF PHYSICIAN] - 07/16/22 10:00 am (FOLLOW UP APPOINTMENT IS ON July AT 10:00 AM)
[2022-07-11] MEDS ORDERED: LEVOTHYROXINE 50 MCG TAB PO SCH (07:30)
[2022-07-11] MEDS: RANOLAZINE 500 MG TAB.ER.12H PO SCH (08:14)
[2022-07-11] MEDS ORDERED: CLOPIDOGREL 75 MG TAB PO SCH (09:00)
[2022-07-11] MEDS ORDERED: SERTRALINE 100 MG TAB PO SCH (09:00)
[2022-07-11] MEDS ORDERED: VALSARTAN 40 MG TAB PO SCH (09:00)
[2022-07-11] MEDS ORDERED: ISOSORBIDE MONONITRATE ER 30 MG TAB.ER.24H PO SCH (09:00)
[2022-07-11 09:05] VITALS: BP 126/72; PULSE 55; RESP 20; TEMP 98.1
[2022-07-12] MEDS ORDERED: NON FORMULARY DRUG (Tirzepatide [Mounjaro] 5 MG/0.5 ML Pen.Injctr) SQ SCH (19:36)
[2022-07-13] MEDS ORDERED: metFORMIN 500 MG TAB PO SCH (07:30)
[2022-07-13] MEDS ORDERED: FUROSEMIDE 20 MG TAB PO SCH (09:00)
== END 2022-07-11 09:26 | disposition home health service (06) ==
LOC: CATHCVL 09:42 → 3SCARD 19:35 → CATHCVL 07-11 09:26
PROVIDERS: ATTEND Internal Medicine Interventional Cardiology
DX: I25.10 Atherosclerotic heart disease of native coronary artery without angina pectoris (principal); Z79.84 Long term (current) use of oral hypoglycemic drugs; Z95.5 Presence of coronary angioplasty implant and graft; Z79.899 Other long term (current) drug therapy
CPT/HCPCS: 94760; 80048; 85025; C9600 ×2; C1887 ×2; C1769 ×2; C1894; C1725 ×2; C1874; J2250; J2001; J1644; Q9967 ×2

== ENCOUNTER → 2023-01-18 | Outpatient (CLI) | payer BC ==
--- NOTE | 2023-01-19 09:57 | CT ---
EXAMINATION TYPE: CT chest wo con DATE OF EXAM: 01/18/2023 COMPARISON: None HISTORY: Dyspnea upon excertion. Pt c/o Difficulty swallowing. Choking. CT DLP: 1717.0 mGycm. Automated Exposure Control for Dose Reduction was Utilized. TECHNIQUE: CT scan of the thorax is performed without IV contrast. FINDINGS: LUNGS: The lungs are grossly clear, there is no concerning parenchymal mass or nodule identified. T here is no pleural effusion or pneumothorax seen. The tracheobronchial tree is patent. There is a ca lcified 5 mm nodule left upper lobe compatible with granuloma. There is no significant interlobular s eptal thickening. There is mild basilar and central bronchiectasis. 2 mm subpleural nodule right lowe r lobe axial image 195 is benign. 1 mm subpleural nodule axial image 238 is benign. MEDIASTINUM: Lack of IV contrast is noted to limit evaluation for mediastinal and especially hilar ad enopathy. There are no definitive greater than 1 cm hilar or mediastinal lymph nodes. The heart is en larged. There is coronary artery calcification. Small hiatal hernia. Atherosclerotic change aorta. OTHER: Large gallstone. Accessory spleen noted. Hypertrophic changes of the spine.. IMPRESSION: 1. No diagnostic evidence of interstitial pulmonary fibrosis. There is mild central and basilar bronc hiectasis. 2. Benign calcified 5 mm left upper lobe granuloma. Additional sub-5 mm pulmonary nodules bilaterally too small to characterize but have a benign appearance could be followed on a 12 month basis. 3. Cholelithiasis 4. Coronary artery atherosclerotic disease and cardiomegaly.
== END | disposition home or self-care (01) ==
LOC: RADCTMAIN 16:48
PROVIDERS: ATTEND Internal Medicine
DX: K80.20 Calculus of gallbladder without cholecystitis without obstruction (principal); I25.10 Atherosclerotic heart disease of native coronary artery without angina pectoris; I51.7 Cardiomegaly; R91.8 Other nonspecific abnormal finding of lung field; J47.9 Bronchiectasis, uncomplicated; R06.09 Other forms of dyspnea
CPT/HCPCS: 71250

== ENCOUNTER → 2023-02-18 | Outpatient (CLI) | payer BC ==
--- NOTE | 2023-02-18 15:21 | US ---
EXAMINATION TYPE: US venous doppler duplex LE LT DATE OF EXAM: 02/18/2023 3:11 PM COMPARISON: NONE CLINICAL INDICATION: Female, 62 years old with history of M79.605 LEFT LEG PAIN; Pain SIDE PERFORMED: Left TECHNIQUE: The lower extremity deep venous system is examined utilizing real time linear array sonog shellie with graded compression, doppler sonography and color-flow sonography. VESSELS IMAGED: Common Femoral Vein Deep Femoral Vein Greater Saphenous Vein * Femoral Vein Popliteal Vein Small Saphenous Vein * Proximal Calf Veins (* superficial vessels) Left Leg: Negative for DVT complex area seen medial left knee 5.4 x 3.7 x 3.2 cm. IMPRESSION: Grayscale, color doppler, spectral doppler imaging performed of the deep veins of the lo wer extremities. There is normal flow, compressibility, vascular waveforms.
== END | disposition home or self-care (01) ==
LOC: RADUSWWP 14:33
PROVIDERS: ATTEND Internal Medicine
DX: M79.605 Pain in left leg (principal)

== ENCOUNTER → 2023-12-13 | Outpatient (CLI) | payer BC ==
--- NOTE | 2023-12-13 11:13 | XR ---
EXAMINATION TYPE: XR chest 2V DATE OF EXAM: 12/13/2023 COMPARISON: 12/13/2021 HISTORY: 63-year-old female R09.89, upper respiratory symptoms, cough for 4 days. TECHNIQUE: Frontal and lateral views FINDINGS: Heart normal size. Aorta and pulmonary vasculature within normal limits. Mild interstitial prominence of the chronic appearance. No consolidation or pleural effusion. IMPRESSION: Chronic changes. No acute process seen.
== END | disposition home or self-care (01) ==
LOC: RADXRMAIN 10:30
PROVIDERS: ATTEND Internal Medicine
DX: R09.89 Other specified symptoms and signs involving the circulatory and respiratory systems (principal)
CPT/HCPCS: 71046

== ENCOUNTER → 2024-01-06 | Outpatient (CLI) | payer BC ==
--- NOTE | 2024-01-06 15:07 | CT ---
EXAMINATION TYPE: CT angio chest DATE OF EXAM: 01/06/2024 2:56 PM COMPARISON: 10/30/2020 HISTORY: Cough, SOB, chest heaviness. R/O PE. CT DLP: 544.2 mGycm Automated exposure control for dose reduction was used. CONTRAST: CTA scan of the thorax is performed with IV Contrast, patient injected with 100 mL of Isovue 370, pul monary embolism protocol. 3-D postprocessing was performed.. FINDINGS: LUNGS: The lungs are grossly clear, there is no concerning parenchymal mass or nodule identified. There is a 6.5 mm stable calcified granuloma in the left upper lobe. There is a tiny 2 mm stable nodule in th e left lower lobe. There is no pleural effusion or pneumothorax seen. The tracheobronchial tree is patent. MEDIASTINUM: There is satisfactory enhancement of the pulmonary artery and its branches, there is no CT evidence for pulmonary embolism. There are no greater than 1 cm hilar or mediastinal lymph nodes. No pericardial effusion is seen. IMPRESSION: 1. NO PULMONARY LESION. 2. STABLE BENIGN LEFT LUNG NODULES. 3. NO ACUTE CARDIOPULMONARY DISEASE.
== END | disposition home or self-care (01) ==
LOC: RADCTMAIN 14:13
PROVIDERS: ATTEND Internal Medicine
DX: R91.8 Other nonspecific abnormal finding of lung field (principal); R07.81 Pleurodynia; R05.9 Cough, unspecified; R06.02 Shortness of breath; R07.89 Other chest pain
CPT/HCPCS: 71275; Q9967

== ENCOUNTER → 2024-05-10 | Outpatient (CLI) | payer BC ==
[2024-05-10 12:33] LABS: Appearance,Urine Clear (Clear); Bacteria,Urine Many /hpf; Bilirubin,Urine Negative (Negative); Blood,Urine Negative (Negative); Color,Urine Light Yellow; Glucose,Urine (UA) Negative (Negative); Ketones,Urine Trace (Negative); Leukocyte Esterase,Urine Small (Negative); Mucus,Urine Occasional /hpf; Nitrite,Urine Negative (Negative); Protein,Urine Negative (Negative); RBC,Urine 1 /hpf (0-5); Specific Gravity,Urine 1.028 (1.001-1.035); Squamous Epithelial Cell,Urine 5 /hpf (0-4); Urobilinogen,Urine <2.0 mg/dL (<2.0); WBC,Urine 7 /hpf (0-5)
[2024-05-10 15:06] LABS: Basophils # (A) 0.05 X 10*3/uL (0.00-0.10); Basophils % (A) 0.4 %; Eosinophils # (A) 0.24 X 10*3/uL (0.04-0.35); HCT 39.5 % (37.2-46.3); HGB 13.6 g/dL (12.0-15.0); Lymphocytes # (A) 1.41 X 10*3/uL (0.90-5.00); Lymphocytes % (A) 11.9 %; MCH 30.7 pg (27.0-32.0); MCHC 34.4 g/dL (32.0-37.0); MCV 89.2 FL (80.0-97.0); Mean Platelet Volume 10.7 FL (9.5-12.2); Monocytes % (A) 4.2 %; NRBC Per 100 WBC 0 X 10*3/uL (0.00-0.01); Neutrophils # (A) 9.55 X 10*3/uL (1.80-7.70); Neutrophils % (A) 80.8 %; Platelet Count 206 X 10*3/uL (140-440); RBC 4.43 X 10*6/uL (4.10-5.20); RDW 13.2 % (11.5-14.5); WBC 11.83 X 10*3/uL (4.50-10.00)
[2024-05-10 15:46] LABS: ALT 25 U/L (8-44); AST 19 U/L (13-35); Albumin 4.3 g/dL (3.8-4.9); Albumin/Globulin Ratio 1.87 Ratio (1.60-3.17); Alkaline Phosphatase 97 U/L (41-126); BUN/Creat Ratio 21.86 Ratio (12.00-20.00); Blood Urea Nitrogen 15.3 mg/dL (9.0-27.0); Calcium 10.1 mg/dL (8.7-10.3); Carbon Dioxide 24.7 mmol/L (21.6-31.8); Chloride 100 mmol/L (96-109); Chol/HDL Ratio 3.49 Ratio; Globulin 2.3 g/dL (1.6-3.3); Glucose 209 mg/dL (70-110); LDL Cholesterol,Calculated 50.4 mg/dL (0.0-131.0); Potassium 4.3 mmol/L (3.5-5.5); Sodium 140 mmol/L (135-145); Total Protein 6.6 g/dL (6.2-8.2)
[2024-05-10 18:22] LABS: Microalbumin Creatinine Ratio <8 mg/g Cr (0-30)
== END | disposition home or self-care (01) ==
LOC: LABWHC1 09:14
PROVIDERS: ATTEND Internal Medicine
CPT/HCPCS: 36415; 80053; 80061; 81001; 82043; 82306; 82570; 83036; 84443; 84484; 84550; 85025; 85379

== ENCOUNTER → 2025-01-10 | Outpatient (CLI) | payer BC ==
[2025-01-10 10:29] LABS: Basophils # (A) 0.06 X 10*3/uL (0.00-0.10); Basophils % (A) 0.6 %; Eosinophils # (A) 0.81 X 10*3/uL (0.04-0.35); Eosinophils % (A) 7.8 %; HCT 39.1 % (37.2-46.3); HGB 13.4 g/dL (12.0-15.0); Lymphocytes # (A) 1.69 X 10*3/uL (0.90-5.00); Lymphocytes % (A) 16.3 %; MCH 30.8 pg (27.0-32.0); MCHC 34.3 g/dL (32.0-37.0); MCV 89.9 FL (80.0-97.0); Mean Platelet Volume 10.7 FL (9.5-12.2); Monocytes # (A) 0.54 X 10*3/uL (0.20-1.00); Monocytes % (A) 5.2 %; NRBC Per 100 WBC 0 X 10*3/uL (0.00-0.01); Neutrophils # (A) 7.19 X 10*3/uL (1.80-7.70); Neutrophils % (A) 69.6 %; Platelet Count 208 X 10*3/uL (140-440); RBC 4.35 X 10*6/uL (4.10-5.20); RDW 12.7 % (11.5-14.5); WBC 10.34 X 10*3/uL (4.50-10.00)
[2025-01-10 16:14] LABS: ALT 23 U/L (8-44); AST 22 U/L (13-35); Albumin 4.2 g/dL (3.8-4.9); Alkaline Phosphatase 83 U/L (41-126); BUN/Creat Ratio 27.38 Ratio (12.00-20.00); Blood Urea Nitrogen 21.9 mg/dL (9.0-27.0); Calcium 9.4 mg/dL (8.7-10.3); Carbon Dioxide 23.5 mmol/L (21.6-31.8); Chloride 108 mmol/L (96-109); Chol/HDL Ratio 3.25 Ratio; Glucose 146 mg/dL (70-110); LDL Cholesterol,Calculated 39.5 mg/dL (0.0-131.0); Magnesium 1.4 mg/dL (1.5-2.4); Potassium 4.7 mmol/L (3.5-5.5); Sodium 147 mmol/L (135-145); Total Bilirubin 0.9 mg/dL (0.3-1.2); Total Protein 6.2 g/dL (6.2-8.2)
[2025-01-10 18:22] LABS: Microalbumin Creatinine Ratio <8 mg/g Cr (0-30)
== END | disposition home or self-care (01) ==
LOC: LABWHC1 08:22
PROVIDERS: ATTEND Internal Medicine Clinical Cardiac Electrophysiology
DX: I10 Essential (primary) hypertension (principal); I49.5 Sick sinus syndrome; I25.10 Atherosclerotic heart disease of native coronary artery without angina pectoris; I65.23 Occlusion and stenosis of bilateral carotid arteries; E78.2 Mixed hyperlipidemia; E03.9 Hypothyroidism, unspecified; E11.9 Type 2 diabetes mellitus without complications; R35.0 Frequency of micturition
CPT/HCPCS: 36415; 80053; 80061; 82043; 82570; 83036; 83735; 84443; 85025; 87086